=== PATIENT | male | born 1960 | race Caucasian/White ===

== ENCOUNTER 2025-08-22 09:39 | Outpatient (REF) | payer OTHER, SELFPAY ==
--- OUTSIDE RECORDS SUMMARY | 2025-07-24 11:00 | XMS_ITS | Encounter Summary ---
Author Organization [facility] Address [address] [place] [address] Care Team Providers Care Shingle Packer Name Role Phone Thony Coyne M.D. Primary Care Provide r Reason for Referral * Outpatient (Routine) - Authorized Specialty Diagnoses / Procedures Referred By Odessa sandra Referred To Contact Family Medicine Diagnoses Cardiac Arrest Sudden Personal History Avis Dyson APRN, C.N.PShellie, D.N.PShellie [address] [place] [address] Phone: tel: fax: Thony Coyne M.D. [address] [place] [address] Phone: tel: fax: Referral ID Status Reason Start Date Expiration Date V isits Requested Visits Authorized [id number] Authorized 07/24/2025 01/23/2027 1 1 * MRI/CAT/PET Scan (Routine) - Authorized Specialty Diagnoses / Procedures Referred By Odessa sandra Referred To Contact Radiology Diagnoses Nodules Pulmonary Multiple Procedures CT Chest without IV Contrast Avis Dyson APRN, C.N.P., D.N.P. [address] [place] [phone] Phone: tel: fax: [facility] Region Referral ID Status Reason Start Date Expiration Date V isits Requested Visits Authorized [id number] Authorized 07/24/2025 10/24/2026 1 1 Reason for Visit * Reason Comments Tcm - Post-Hospital Visit * Appointment Request (Routine) - Closed Specialty Diagnoses / Procedures Referred By Contac t Referred To Contact Family Medicine Referral ID Status Reason Start Date Expiration Date Visits Re quested Visits Authorized [id number] Closed 07/17/2025 10/17/2026 1 1 Encounter Details Date Type Department Care Team (Late st Contact Info) Description 07/24/2025 11:00 AM CDT Office Visit Department of Family Medicine, [facility], in [place], [place] [address] [phone] Avis Dyson APRN, C.N.P., D.N.P. [address], [place] [phone] Cardiac Arrest Sudden Personal History (Primary Dx); Nodules Pulmonary Multiple Social History Tobacco Use Types Packs/Day Years Used Date Smoking Tobacco: Never Passive Smoke Exposure: Past Smokeless Tobacco: Never Tobacco Cessation:Counseling Given: Not Answered Alcohol Use Standard Drinks/Week Comments Yes 2 (1 standard drink = 0.6 oz pure alcohol) 5-6 nights a week, has one drink [facility] Yoicsities Answer Date Recorded In the past 12 months has [employer], gas, oil, or water [employer] threatened to shut off services in your home? No 12/25/2024 Humiliation, Afraid, Rape, and Kick questionnair e Answer Date Recorded Within the last year, have y ou been afraid of your partner or ex-partner? No 11/11/2021 Within the last year, have y ou been humiliated or emotionally abused in other ways by your partner or ex-partner? No Within the last year, have y ou been kicked, hit, slapped, or otherwise physically hurt by your partner or ex-partner? No 11/11/2021 Within the last year, have y ou been raped or forced to have any kind of sexual activity by your partner or ex-partner? No 11/11/2021 Hunger Vital Sign Answer Date Recorded Within the past 12 months, y ou worried that your food would run out before you got the money to buy more. Never true 12/25/19 25 Within the past 12 months, t he food you bought just didn't last and you didn't have money to get more. Never true 12/25/2024 PRAPARE - Transportation Answer Date Re corded In the past 12 months, has l ack of transportation kept you from medical appointments or from getting medications? No 12/09 In the past 12 months, has l ack of transportation kept you from meetings, work, or from getting things needed for daily living? No 12/25/2024 Housing Stability Answer Date Recorded What is your living situation today? I have a [facility] place to live 12/25/2024 Education Answer Date Recorded What is the highest level of school you have completed or the highest degree you have received? Master's degree (e.g., MA, MS, Guilherme, MEd, CASKET UPHOLSTERER, ENDY) 05/04/2019 Sex and Gender Information Value Date Recorded Sex Assigned at Male 12/17/2017 8:02 PM LIME KILN AND RECAUSTICIZING OPERATOR Legal Sex Male 4:29 AM LIME KILN AND RECAUSTICIZING OPERATOR Gender Identity Male 12/17/2017 8:02 PM LIME KILN AND RECAUSTICIZING OPERATOR Sexual Orientation Straight 12/17/2017 8: 02 PM LIME KILN AND RECAUSTICIZING OPERATOR documented as of this encounter Last Filed Vital Signs Vital Sign Reading Time Taken Comments Blood Pressure 102/62 07/24/2025 10:57 AM CDT Pulse 65 07/24/2025 10:57 AM CDT Temperature - - Respiratory Rate - - Oxygen Saturation - - Inhaled Oxygen Concentration - - Weight 81.3 kg (179 lb 3.7 oz) 07/24/2025 10:57 AM CDT Height 182.8 cm (5' 11.97) 07/24/2025 10:57 AM CDT Body Mass Index 24.33 07/24/2025 10:57 AM CDT documented in this encounter Progress Notes * Avis Dyson, COOPER, C.N.P., D.N.P. - 07/24/2025 11:00 AM CDT DATE OF VISIT: 07/24/2025 SUBJECTIVE CHIEF COMPLAINT / REASON FOR VISIT Alex Sheffield is a 64 y.o. male who presents for evaluation of Tcm - Post- Hospital Visit. The patient verbally consented to an audio recording of their visit to assist with the completion of documentation. History of Present Illness . Alex Alvarez is a 64 year old male who presents to the clinic today with his for followup after hospitalization. Dates of Hospitalization: 06/30/2025 - 07/17/2025 [facility] Phone Call: 07/18/2025 Coronary artery bypass x4 (GANNON to LAD, GIRMA to OM, SVG to Dg, SVG to PDA) with Dr. Gould on 07/10/25. Per the hospital course, Alex Sheffield is a 64 y.o. male with h/o history of celiac disease, OSAnot on CPAP, h/o lumbar radiculopathy, who was admitted on 06/30/[address] [facility] ED after syncope and collapse, loss of pulse, requiring CPR. He is active at baseline, bikes 200 miles per week. Was on his morning bike ride with a group of cyclists and at around mile 9 developed dizziness and collapsed. Evaluation by another cyclist who happened to be an RN found no pulse and CPR started x 1 cycle with ROSC. Went to ED in [facility], head CT negative, CT PE unremarkable. Transferred to [facility] 06/30/25 for evaluation of cardiac arrest. TTE 06/30/25 showed normal EF 65% without wall motion abnormalities. CTCA 07/02/25 showed LAD 70% stenosis, severe disease in left second diag branch. Coronary angiogram 07/03/25 with multivessel disease. Preoperatively had an episode of nonsustained VT 07/02/25 so EP started short course of amiodarone on 07/03. Pt underwent coronary artery bypass x4 (GANNON to LAD, GIRMA to OM, SVG to Dg, SVG to PDA) with Dr. Gould on 07/10/25. Operative course was uneventful. Postop LVEF: 55%. Extubated later same day of surgery, and transferred to [facility] in stable condition 07/12. Post-op course notable for brief episode of a-fib 07/13, self-converted back to sinus and rate controlled with metoprolol. Per EP, dual chamber ICD placed 07/16 for secondary prevention given history of out of hospital cardiac arrest that was not felt to be ischemic in etiology. The patient has otherwise recovered sufficiently to be discharged today, 07/17/2025, 7 Days Post-Op. Incisions are healing well with no signs or symptoms of infection. Pain is well controlled with medication regimen listed below. Patient is tolerating PO intake and passing bowel movements. Ambulatingwell independently. Pt is currently afebrile with stable vital signs as below and weight is stable and near baseline. He has been experiencing lightheadedness and dizziness for the past four to five days, with a significant worsening of symptoms this morning. He feels dizzy, lightheaded, and almost foggy upon standing. His noted a concerning drop in his blood pressure to 77/63 mmHg when he stood up, which later returned to normal. He has been drinking plenty of fluids and feels well-hydrated. He started taking losartan 50 mg this morning after discontinuing lisinopril on the tenth due to a severe cough. The cough has since subsided, and he reports improvement in physical pain and rib soreness since stopping lisinopril. He is also on a high dose of metoprolol and has been using Tylenol for pain management, having stopped oxycodone. He mentions frequent urination at night, which he attributes to increased hydration. He has been prescribed Plavix for a year and aspirin for life. No other symptoms apart from the lightheadedness, dizziness, and improved physical pain. OBJECTIVE VITAL SIGNS BP 102/62 (BP Location: Right arm, Patient Position: Sitting, Cuff Size: Regular) Pulse 65 Ht 182.8 cm Wt 81.3 kg BMI 24.33 kg/m?? Physical Exam General: Well-developed, well-nourished 64 y.o. male in no acute distress. Patient is cooperative during our visit today. HEENT: Head is normocephalic. Conjunctivae and sclerae clear without injection. Pupils equal and reactive bilaterally. EOM's intact. Respiratory: Clear to auscultation bilaterally throughout all lung gayle. Respirations are easy and unlabored. Cardiovascular: Regular rate and rhythm. No murmurs, gallops or rubs heard. Musculoskeletal: Normal range of motion in all extremities. 5/5 strength in bilateral upper and lower extremities. Neuro: Alert and oriented x3, responds appropriately to questions and follows commands without difficulty. Extremities: No cyanosis, clubbing or edema. Skin: Warm, pink and dry. No rashes or lesions. Surgical scars on chest are well healed, no signs of bleeding or infection. Psych: Appropriate mood and affect. Dressed appropriately. Contributes to meaningful conversation. Speech was spontaneous, clear, coherent, with normal rate, rhythm, volume, and tone. ASSESSMENT/ PLAN Cardiac Arrest Sudden Personal History Overall doing well since discharge. He's having some hypotension likely due to losartan and metoprolol combination. He is well-hydrated. BP today in clinic is 102/62. Prescribed Plavix for one year and aspirin for life. Starting cardiac rehabilitation. - Continue Plavix for one year. - Continue aspirin indefinitely. - Start cardiac rehabilitation. - Attend follow-up appointment with cardiology team in mid-September. - Reduce losartan dose from 50 to 25 mg daily. - Monitor blood pressure at home and report trends via portal message and if this improves the dizziness. - Consider discontinuing losartan if symptoms persist after 2-3 days at reduced dose. - Labs recheck today include CBC and BMP. Orders: CBC without Differential; Future Basic Metabolic Panel; Future losartan (Cozaar) 25 mg tablet; Take 1 tablet (25 mg total) by mouth daily. Family Medicine office visit (clinic); Future Nodules Pulmonary Multiple Pulmonary nodules identified. Follow-up chest CT recommended in six months. - Order chest CT in six months to evaluate pulmonary nodules. Orders: CT Chest without IV Contrast; Future Follow-up Requires follow-up for blood pressure management and post-myocardial infarction care. - Schedule follow-up with Dr. Thony Coyen in 3-4 months. - Coordinate CT for pulmonary nodules. - Perform lab tests today to check platelet count, hemoglobin, electrolytes, and kidney function. - Will notify us how BPs trend over the next few days and symptoms. The patient verbalized understanding and agreement of the plan of care. All questions were answeredtoday. The patient will contact the clinic with any questions, concerns or changes in condition. Aware of emergency department if they develop any worrisome symptoms or have any immediate medical concerns. AVS was provided to the patient. Avis Dyson APRN, C.N.P., D.N.P. documented in this encounter Plan of Treatment Scheduled Orders Name Type Priority Associated Diagnoses Orde r Schedule CT Chest without IV Contrast Imaging RAD - Routine (most inpatients and all outpatients) Nodules Pulmonary Multiple Expected: 01/21/2026, Expires: 10/23/2026 Scheduled Referrals Name Type Priority Associated Diagnoses Orde r Schedule Family Medicine office visit (clinic) Outpatient Referral Routine Cardiac Arrest Sudden Personal History Expected: 10/23/2025, Expires: 10/23/2026 documented as of this encounter Results * Basic Metabolic Panel (07/24/2025 11:32 AM CDT) Potassium, P 4.5 3.6 - 5.2 mmol/L 07/24/2025 12:05 PM CDT [facility] Sodium, P 138 135 - 145 mmol/L 07/24/2025 12:05 PM CDT [facility] Chloride, P 101 98 - 107 mmol/L 07/24/2025 12:05 PM CDT [facility] Bicarbonate, P 25 22 - 29 mmol/L 07/24/2025 12:05 PM CDT [facility] Anion Gap, P 12 7 - 15 07/24/2025 12:05 PM CDT [facility] BUN (Blood Urea Nitrogen), P 16 8 - 24 mg/dL 07/24/2025 12:05 PM CDT [facility] Creatinine 0.97 0.74 - 1.35 mg/dL 07/24/2025 12:05 PM CDT [facility] Estimated GFR (eGFR) 88 >=60 mL/min/BSA 07/24/2025 12:05 PM CDT [facility] Comment: Estimated GFR calculated using the 2020 CKD_EPI creatinine equation. Calcium, Total, P 9.5 8.8 - 10.2 mg/dL 07/24/2025 12:05 PM CDT [facility] Glucose, P 99 70 - 140 mg/dL 07/24/2025 12:05 PM CDT [facility] Blood (Blood, Venous) 07/24/2025 11:32 AM CDT 07/24/2025 11:40 AM CDT us Avis Dyson APRN C.N.P., D.N.P. LAB BLOO D ADD-ON Final Result Performing Organization Address [facility]/ZIP Co de Phone Number [facility] [address] [place] [address], [facility] [facility] [place] [address] [place] [address] * (ABNORMAL) CBC without Differential (07/24/2025 11:32 AM CDT) [facility] Hemoglobin 11.3(L) 13.2 - 16.6 g/dL 07/24/2025 11:46 AM CDT [facility] Hematocrit 36.0(L) 38.3 - 48.6 % 07/24/2025 11:46 AM CDT [facility] Erythrocytes 4.07(L) 4.35 - 5.65 x10(12)/L 07/24/2025 11:46 AM CDT [facility] MCV 88.5 78.2 - 97.9 fL 07/24/2025 11:46 AM CDT [facility] RBC Distrib Width 13.3 11.8 - 14.5 % 07/24/2025 11:46 AM CDT [facility] Platelet Count 426(H) 135 - 317 x10(9)/L 07/24/2025 11:46 AM CDT [facility] Leukocytes 8.8 3.4 - 9.6 x10(9)/L 07/24/2025 11:46 AM CDT [facility] Blood (Blood, Venous) 07/24/2025 11:32 AM CDT 07/24/2025 11:40 AM CDT us Avis Dyson APRN C.N.P., D.N.P. LAB BLOO D ADD-ON Final Result Performing Organization Address City/[facility]/ZIP Co de Phone Number [facility] [address] [place] [address], [facility] [facility] [place] [address] [place] [address] documented in this encounter Visit Diagnoses Diagnosis Cardiac Arrest Sudden Personal History- Primary Nodules Pulmonary Multiple documented in this encounter Care Teams Shingle Packer Relationship Specialty Start Date End Date Thony Coyne M.D. [address] [place] [phone] PCP - General 04/22/17 documented as of this encounter
--- OUTSIDE RECORDS SUMMARY | 2025-07-24 11:26 | XMS_ITS | Encounter Summary ---
Author Organization [facility] Address [address] [place] [address] Care Team Providers Care Hydraulic Press Tender Name Role Phone Thony Coyne M.D. Primary Care Provide r Encounter Details Date Type Department Care Team (Latest Contact Info) Description 07/24/2025 11:26 AM CDT - 07/24/2025 11:59 PM T Hospital Encounter Department of Laboratory Medicine in [place], [place] [address] [phone] Avis Dyson APRN, C.N.P., D.N.P. [address] [phone] Cardiac Arrest Sudden Personal History Discharge Disposition: Home or Self Care Social History Tobacco Use Types Packs/Day Years Used Date Smoking Tobacco: Never Passive Smoke Exposure: Past Smokeless Tobacco: Never Alcohol Use Standard Drinks/Week Comments Yes 2 (1 standard drink = 0.6 oz pure alcohol) 5-6 nights a week, has one drink [facility] Utilities Answer Date Recorded In the past 12 months has [employer], gas, oil, or water [employer] threatened to shut off services in your [...] your living situation today? I have a [facility] place to live 12/25/2024 Education Answer Date Recorded What is the highest level of school you have completed or the highest degree you have received? Master's degree (e.g., MA, MS, Guilherme, MEd, CORPORATE STRATEGY ANALYST, ENDY) 05/04/2019 Sex and Gender Information Value Date Recorded Sex Assigned at Male 12/17/2017 8:02 PM MACHINE PECAN GATHERER Legal Sex Male 4:29 AM MACHINE PECAN GATHERER Gender Identity Male 12/17/2017 8:02 PM MACHINE PECAN GATHERER Sexual Orientation Straight 12/17/2017 8: 02 PM MACHINE PECAN GATHERER documented as of this encounter Medications at Time of Discharge acetaminophen (TylenoL) 500 mg tablet Take 1,000 mg by mouth every 6 (six) hours as needed. 07/16/2025 aspirin 81 mg chewable tablet Chew 81 mg daily. 07/17/2025 azelastine (ASTELIN) 137 mcg/spray (0.1 %) nasal spray Administer into each nostril 2 (two) times a day. Use in each nostril as directed benzonatate (Tessalon) 200 mg capsule Take 200 mg by mouth 3 (three) times a day as needed. 07/16/2025 cetirizine (ZyrTEC) 10 mg chewable tablet Chew 10 mg daily. clopidogreL (Plavix) 75 mg tablet Take 75 mg by mouth daily. 07/17/2025 fluticasone propionate (FLONASE) 50 mcg/actuation nasal spray USE 2 SPRAYS IN EACH NOSTRIL DAILY 48 g 3 02/05/2023 meloxicam (MOBIC) 7.5 mg tablet Take 7.5 mg by mouth daily. metoprolol succinate (Toprol XL) 100 mg 24 hr tablet Take 100 mg by mouth daily. 07/17/2025 montelukast (SINGULAIR) 10 mg tabletIndication s:Chronic Cough Take 1 tablet (10 mg total) by mouth at bedtime. 90 tablet 3 08/11/2021 multivitamin tablet Take 1 tablet by mouth daily. nitroglycerin (Nitrostat) 0.[address] 0.4 mg under the tongue every 5 (five) minutes as needed. 07/16/2025 omeprazole (PriLOSEC) [address] capsule Take 20 mg by mouth daily before morning meal. oxyCODONE (Roxicodone) 5 mg immediate release tablet Take 5-10 mg by mouth every 6 (six) hours as needed. 07/16/2025 rosuvastatin (Crestor) 20 mg tablet Take 20 mg by mouth at bedtime. 07/16/2025 losartan (Cozaar) 25 mg tabletIndication s:Cardiac Arrest Sudden Personal History Take 1 tablet (25 mg total) by mouth daily. 30 tablet 07/24/2025 documented as of this encounter Plan of Treatment Not on file documented as of this encounter Procedures Procedure Name Priority Date/Time Associated Diagnosis Comments CBC WITHOUT DIFFERENTIAL, B Routine 07/24/2025 11:32 AM CDT Cardiac Arrest Sudden Personal History BASIC METABOLIC PANEL, S/P Routine 07/24/2025 11:32 AM CDT Cardiac Arrest Sudden Personal History documented in this encounter Results * Basic Metabolic Panel (07/24/2025 11:32 AM CDT) [facility] Potassium, P 4.5 3.6 - 5.2 mmol/L [...] 11:32 AM CDT 07/24/2025 11:40 AM CDT Avis Dyson APRN, C.N.P., D.N.P. LAB BLOO D ADD-ON Final Result [facility] [address] [place] [address], [facility] [place] [address] [place] [address] * (ABNORMAL) CBC without Differential (07/24/2025 11:32 AM CDT) Hemoglobin 11.3(L) 13.2 - 16.6 g/dL 07/24/2025 [...] 11:32 AM CDT 07/24/2025 11:40 AM CDT [facility] Kiel GAMBOA, C.N.P., D.N.P. LAB BLOO D ADD-ON Final Result [facility] [address], [place] [address], [facility] [place] [address] [place] [address] documented in this encounter Visit Diagnoses Diagnosis Cardiac Arrest Sudden Personal History documented in this encounter Care Teams Hydraulic Press Tender Relationship Specialty Start Date End Date Thony Coyne M.D. [address] [place] [phone] PCP - General 04/22/17 documented as of this encounter
--- OUTSIDE RECORDS SUMMARY | 2025-07-25 16:33 | XMS_ITS | Encounter Summary ---
Author Organization [facility] Address [address] [place] [address] Care Team Providers Care Bag Patcher Name Role Phone Thony Coyne M.D. Primary Care Provide r Reason for Visit * Reason Comments Hypertension * Auth/Cert (Routine) Specialty Diagnoses / Procedures Referred By Contac t Referred To Contact Diagnoses Hypertension NOS Procedures ED Referral ID Status Reason Start Date Expiration Date Visits Re quested Visits Authorized [id number] 1 1 Encounter Details Date Type Department Care Team (Late st Contact Info) Description 07/25/2025 4:33 PM CDT - 07/25/2025 11:59 PM CDT Emergency [facility] [address] [facility] [place] [address] Discharge Disposition: Home or Self Care Social History Tobacco Use Types Packs/Day Years Used Date Smoking Tobacco: Never Passive Smoke Exposure: Past Smokeless Tobacco: Never Alcohol Use Standard Drinks/Week Comments Yes 2 (1 standard drink = 0.6 oz pure alcohol) 5-6 nights a week, has one drink [facility] Utilities Answer Date Recorded In the past 12 months has [employer], gas, oil, or water [employer] threatened to shut off services in your [...] your living situation today? I have a [facility] place to live 12/25/2024 Education Answer Date Recorded What is the highest level of school you have completed or the highest degree you have received? Master's degree (e.g., MA, MS, Guilherme, MEd, ASSISTANT PLANT MANAGER, ENDY) 05/04/2019 Sex and Gender Information Value Date Recorded Sex Assigned at Male 12/17/2017 8:02 PM PEER EDUCATOR Legal Sex Male 4:29 AM PEER EDUCATOR Gender Identity Male 12/17/2017 8:02 PM PEER EDUCATOR Sexual Orientation Straight 12/17/2017 8: 02 PM PEER EDUCATOR documented as of this encounter Medications at [...] total) by mouth daily. 30 tablet 07/24/2025 5 documented as of this encounter Plan of Treatment Not on file documented as of this encounter Visit Diagnoses Not on filedocumented in this encounter Care Teams Bag Patcher Relationship Specialty Start Date End Date Thony Coyne M.D. [address] [place] [address] PCP - General 04/22/17 documented as of this encounter
--- OUTSIDE RECORDS SUMMARY | 2025-07-29 10:12 | XMS_ITS | Encounter Summary ---
Author Organization [facility] Address [address] [place] [address] Care Team Providers Care Pacu Rn Name Role Phone Thony Coyne M.D. Primary Care Provide r Reason for Visit * Reason Comments Dizziness * Auth/Cert (Routine) Specialty Diagnoses / Procedures Referred By Contac t Referred To Contact Diagnoses Hypertension NOS Procedures ED Referral ID Status Reason Start Date Expiration Date Visits Re quested Visits Authorized [id number] 1 1 Encounter Details Date Type Department Care Team (Late st Contact Info) Description 07/29/2025 10:12 AM CDT - 07/29/2025 11:59 PM CDT Emergency [facility] [address] [facility] [place] [address] Dizziness (Primary Dx) Discharge Disposition: Home or Self Care Social History Tobacco Use Types Packs/Day Years Used Date Smoking Tobacco: Never Passive Smoke Exposure: Past Smokeless Tobacco: Never Alcohol Use Standard Drinks/Week Comments Yes 2 (1 standard drink = 0.6 oz pure alcohol) 5-6 nights a week, has one drink [facility] Utilities Answer Date Recorded In the past 12 months has [employer], gas, oil, or water [id number] threatened to shut off services in your [...] your living situation today? I have a [facility] place to live 12/25/2024 Education Answer Date Recorded What is the highest level of school you have completed or the highest degree you have received? Master's degree (e.g., MA, MS, Guilherme, MEd, MEDICAL OFFICE REPRESENTATIVE, ENDY) 05/04/2019 Sex and Gender Information Value Date Recorded Sex Assigned at Male 12/17/2017 8:02 PM GLASS BREAKER Legal Sex Male 4:29 AM GLASS BREAKER Gender Identity Male 12/17/2017 8:02 PM GLASS BREAKER Sexual Orientation Straight 12/17/2017 8: 02 PM GLASS BREAKER documented as of this encounter Medications at [...] Procedure Name Priority Date/Time Associated Diagnosis Comments CT ABDOMEN PELVIS WITH IV CONTRAST RAD - Semiurgent (Fast; most ED patients; some inpatients) 07/29/2025 12:[address] CHEST ANGIOGRAM AND PULMONARY ARTERIES WITH IV CONTRAST RAD - Semiurgent (Fast; most ED patients; some inpatients) 07/29/2025 12:55 PM CDT documented in this encounter Results * CT Abdomen Pelvis with IV Contrast (07/29/2025 12:56 PM CDT) Anatomical Region Laterality Modality Abdomen, Pelvis, Abdominal R ST LOS, Abdominal ARZ LOS, Abdominal FLA LOS N/A Computed Tomography Impressions 07/29/2025 1:25 PM CDT 1. No pulmonary embolus. 2. Left greater than right pleural effusions. 3. Right adrenal hypoattenuating lesion is suspicious for old hematoma given more solid appearance on prior CT on 06/30/2025 and has decreased in size since then. Consider follow-up adrenal protocol CT in 3-6 months. Narrative 07/29/2025 1:25 PM CDT EXAM: CT CHEST ANGIOGRAM AND PULMONARY ARTERIES WITH IV CONTRAST, CT ABDOMEN PELVIS WITH IV CONTRAST Including 3D image postprocessing with or without AI assistance. COMPARISON: CTA 06/30/2025 FINDINGS: Chest: Pulmonary Arteries: Excellent quality study. Pulmonary embolism: No endoluminal filling defects in the opacified pulmonary arteries. Other cardiovascular: Heart size is borderline enlarged. No pericardial effusion. Reflux of contrast into the IVC Lungs and Airways: No focal airspace consolidation. Bibasilar atelectasis overlying the pleural effusions. 5 mm solid nodule in the left lower lobe on series 6 image 338 is stable as well as subpleural nodule along the right horizontal fissure. Right-sided calcified granulomas. Pleural Space: Small left greater than right pleural effusions. Mediastinum and Benita: No thoracic adenopathy. Osseous Structures and Chest Wall: No aggressive bone lesions. Chronic anterior wedging of midthoracic vertebral bodies with slight focal kyphosis. Medical Devices: Median sternotomy and ICD. Abdomen: Liver: Subcentimeter hypodensity in segment 7, most likely cyst or hemangioma. No suspicious lesion. Gallbladder/bile ducts: No gallstones or billiary dilation Pancreas: No focal lesion or ductal dilation Spleen: Within normal limits Adrenal glands: 3 cm right adrenal fluid collection. More solid on 06/30/2025 and measured up to 3.9 cm. Kidneys/Ureters:No suspicious mass, hydronephrosis or calculi. Tiny hypodensities too small to characterize, but most likely simple cysts Gastrointestinal tract: No wall thickening. Normal caliber large and small bowel. Appendectomy Moderate colonic stool. Peritoneum/Retroperitoneum: No free air or free fluid. No suspicious nodule or mass. Lymph nodes: No lymphadenopathy. Vascular: Normal caliber aorta. Atherosclerosis Pelvis: No free fluid. Normal urinary bladder. Bones/Soft Tissues: No acute or suspicious soft tissue or osseous abnormality. Degenerative changes in the spine. Procedure Note Beltran Viveros M.D. - 07/29/2025 EXAM: CT CHEST ANGIOGRAM AND PULMONARY ARTERIES WITH IV CONTRAST, CTABDOMEN PELVIS WITH IV CONTRAST Including 3D image postprocessing with or without AI assistance. COMPARISON: CTA 06/30/2025 FINDINGS: Chest: Pulmonary Arteries: Excellent quality study. Pulmonary embolism: No endoluminal filling defects in the opacifiedpulmonary arteries. Other cardiovascular: Heart size is borderline enlarged. No pericardialeffusion. Reflux of contrast into the IVC Lungs and Airways: No focal airspace consolidation. Bibasilar atelectasisoverlying the pleural effusions. 5 mm solid nodule in the left lower lobeon series 6 image 338 is stable as well as subpleural nodule along theright horizontal fissure. Right- sided calcified granulomas. Pleural Space: Small left greater than right pleural effusions. Mediastinum and Benita: No thoracic adenopathy. Osseous Structures and Chest Wall: No aggressive bone lesions. Chronicanterior wedging of midthoracic vertebral bodies with slight focalkyphosis. Medical Devices: Median sternotomy and ICD. Abdomen: Liver: Subcentimeter hypodensity in segment 7, most likely cyst orhemangioma. No suspicious lesion. Gallbladder/bile ducts: No gallstones or billiary dilation Pancreas: No focal lesion or ductal dilation Spleen: Within normal limits Adrenal glands: 3 cm right adrenal fluid collection. More solid on06/30/2025 and measured up to 3.9 cm. Kidneys/Ureters:No suspicious mass, hydronephrosis or calculi. Tinyhypodensities too small to characterize, but most likely simple cysts Gastrointestinal tract: No wall thickening. Normal caliber large and smallbowel. Appendectomy Moderate colonic stool. Peritoneum/Retroperitoneum: No free air or free fluid. No suspiciousnodule or mass. Lymph nodes: No lymphadenopathy. Vascular: Normal caliber aorta. Atherosclerosis Pelvis: No free fluid. Normal urinary bladder. Bones/Soft Tissues: No acute or suspicious soft tissue or osseousabnormality. Degenerative changes in the spine. IMPRESSION: 1. No pulmonary embolus. 2. Left greater than right pleural effusions. 3. Right adrenal hypoattenuating lesion is suspicious for old hematomagiven more solid appearance on prior CT on 06/30/2025 and has decreased insize since then. Consider follow-up adrenal protocol CT in 3-[address] CT PROCEDURES Final Resul t * CT Chest Angiogram and Pulmonary Arteries with IV Contrast (07/29/2025 12:55 PM CDT) Anatomical Region Laterality Modality Chest, Cardiovascular RST LO S, Thoracic ARZ LOS, Thoracic FLA LOS N/A Computed Tomography Impressions 07/29/2025 1:25 PM CDT 1. No pulmonary embolus. 2. Left greater than right pleural effusions. 3. Right adrenal hypoattenuating lesion is suspicious for old hematoma given more solid appearance on prior CT on 06/30/2025 and has decreased in size since then. Consider follow-up adrenal protocol CT in 3-6 months. Narrative 07/29/2025 1:25 PM CDT EXAM: CT CHEST ANGIOGRAM AND PULMONARY ARTERIES WITH IV CONTRAST, CT ABDOMEN PELVIS WITH IV CONTRAST Including 3D image postprocessing with or without AI assistance. COMPARISON: CTA 06/30/2025 FINDINGS: Chest: Pulmonary Arteries: Excellent quality study. Pulmonary embolism: No endoluminal filling defects in the opacified pulmonary arteries. Other cardiovascular: Heart size is borderline enlarged. No pericardial effusion. Reflux of contrast into the IVC Lungs and Airways: No focal airspace consolidation. Bibasilar atelectasis overlying the pleural effusions. 5 mm solid nodule in the left lower lobe on series 6 image 338 is stable as well as subpleural nodule along the right horizontal fissure. Right-sided calcified granulomas. Pleural Space: Small left greater than right pleural effusions. Mediastinum and Benita: No thoracic adenopathy. Osseous Structures and Chest Wall: No aggressive bone lesions. Chronic anterior wedging of midthoracic vertebral bodies with slight focal kyphosis. Medical Devices: Median sternotomy and ICD. Abdomen: Liver: Subcentimeter hypodensity in segment 7, most likely cyst or hemangioma. No suspicious lesion. Gallbladder/bile ducts: No gallstones or billiary dilation Pancreas: No focal lesion or ductal dilation Spleen: Within normal limits Adrenal glands: 3 cm right adrenal fluid collection. More solid on 06/30/2025 and measured up to 3.9 cm. Kidneys/Ureters:No suspicious mass, hydronephrosis or calculi. Tiny hypodensities too small to characterize, but most likely simple cysts Gastrointestinal tract: No wall thickening. Normal caliber large and small bowel. Appendectomy Moderate colonic stool. Peritoneum/Retroperitoneum: No free air or free fluid. No suspicious nodule or mass. Lymph nodes: No lymphadenopathy. Vascular: Normal caliber aorta. Atherosclerosis Pelvis: No free fluid. Normal urinary bladder. Bones/Soft Tissues: No acute or suspicious soft tissue or osseous abnormality. Degenerative changes in the spine. Procedure Note Beltran Viveros M.D. - 07/29/2025 EXAM: CT CHEST ANGIOGRAM AND PULMONARY ARTERIES WITH IV CONTRAST, CTABDOMEN PELVIS WITH IV CONTRAST Including 3D image postprocessing with or without AI assistance. COMPARISON: CTA 06/30/2025 FINDINGS: Chest: Pulmonary Arteries: Excellent quality study. Pulmonary embolism: No endoluminal filling defects in the opacifiedpulmonary arteries. Other cardiovascular: Heart size is borderline enlarged. No pericardialeffusion. Reflux of contrast into the IVC Lungs and Airways: No focal airspace consolidation. Bibasilar atelectasisoverlying the pleural effusions. 5 mm solid nodule in the left lower lobeon series 6 image 338 is stable as well as subpleural nodule along theright horizontal fissure. Right- sided calcified granulomas. Pleural Space: Small left greater than right pleural effusions. Mediastinum and Benita: No thoracic adenopathy. Osseous Structures and Chest Wall: No aggressive bone lesions. Chronicanterior wedging of midthoracic vertebral bodies with slight focalkyphosis. Medical Devices: Median sternotomy and ICD. Abdomen: Liver: Subcentimeter hypodensity in segment 7, most likely cyst orhemangioma. No suspicious lesion. Gallbladder/bile ducts: No gallstones or billiary dilation Pancreas: No focal lesion or ductal dilation Spleen: Within normal limits Adrenal glands: 3 cm right adrenal fluid collection. More solid on06/30/2025 and measured up to 3.9 cm. Kidneys/Ureters:No suspicious mass, hydronephrosis or calculi. Tinyhypodensities too small to characterize, but most likely simple cysts Gastrointestinal tract: No wall thickening. Normal caliber large and smallbowel. Appendectomy Moderate colonic stool. Peritoneum/Retroperitoneum: No free air or free fluid. No suspiciousnodule or mass. Lymph nodes: No lymphadenopathy. Vascular: Normal caliber aorta. Atherosclerosis Pelvis: No free fluid. Normal urinary bladder. Bones/Soft Tissues: No acute or suspicious soft tissue or osseousabnormality. Degenerative changes in the spine. IMPRESSION: 1. No pulmonary embolus. 2. Left greater than right pleural effusions. 3. Right adrenal hypoattenuating lesion is suspicious for old hematomagiven more solid appearance on prior CT on 06/30/2025 and has decreased insize since then. Consider follow-up adrenal protocol CT in 3-6 months. Abby Duong M.D. IM CT PROCEDURES Final Resul t documented in this encounter Visit Diagnoses Diagnosis Dizziness- Primary documented in this encounter Administered Medications Inactive Administered Medications - up to 3 most recent administrations Medication Order MAR Action Action Date Dose Rate Site iohexoL 350 mg iodine/mL solution 100 mL (Omnipaque) 100 mL, intravenous, Once in imaging, contrast, Starting on 07/29/25 at 1250, For 1 dose Given 07/29/2025 11:47 AM CDT 100 mL Right Antecubital sodium chloride 0.9 % flush 80 mL 80 mL, intravenous, Once, On 07/29/25 at 1300, For 1 dose Given 07/29/2025 11:47 AM CDT 80 mL Right Antecubital sodium chloride 0.9 % injection 10 mL 10 mL, intravenous, As needed, line care, Starting on 07/29/25 at 1250 Given 07/29/2025 11:47 AM CDT 10 mL Right Antecubital documented in this encounter Active and Recently Administered Medications Times are shown in CDT. Scheduled Medication Order 07/27/2025 07/28/2025 07/29/2025 sodium chloride 0.9 % flush 80 mL (COMPLETED) 80 mL, intravenous, Once, On 07/29/25 at 1300, For 1 dose 1147 (Given - Provid er: Ruby A Evelio, R.T.(R)(CT), R.T.(R)) PRN Medication Order 07/27/2025 07/28/2025 07/29/2025 iohexoL 350 mg iodine/mL solution 100 mL (Omnipaque) (COMPLETED) 100 mL, intravenous, Once in imaging, contrast, Starting on 07/29/25 at 1250, For 1 dose 1147 (Given - Provid er: Kevan Liu(Alex)(CT), R.T.(R)) sodium chloride 0.9 % injection 10 mL (CANCELED) 10 mL, intravenous, As needed, line care, Starting on 07/29/25 at 1250 1147 (Given - Provid er: Kevan Liu(Alex)(CT), R.T.(R)) documented in this encounter Care Teams Pacu Rn Relationship Specialty Start Date End Date Thony Coyne M.D. [address] [phone] PCP - General 04/22/17 documented as of this encounter
--- OUTSIDE RECORDS SUMMARY | 2025-08-23 00:14 | XMS_ITS | Encounter Summary ---
Author Organization [facility] Address [address] [place] [address] Care Team Providers Care Crime Lab Technician Name Role Phone Thony Coyne M.D. Primary Care Provide r Encounter Details Date Type Department Care Team (Late st Contact Info) Description 08/09/2025 Orders Only Department of Family Medicine, [facility] [place], in [place], [place] [address] [place] [phone] Thony Coyne M.D. [address] [place] [address] Social History Tobacco Use Types Packs/Day Years Used Date Smoking Tobacco: Never Passive Smoke Exposure: Past Smokeless Tobacco: Never Alcohol Use Standard Drinks/Week Comments Yes 2 (1 standard drink = 0.6 oz pure alcohol) 5-6 nights a week, has one drink [employer] Answer Date Recorded In the past 12 months has [employer] gas, oil, or water [employer] threatened to shut off services in your [...] your living situation today? [facility] 12/25/2024 Education Answer Date Recorded What is the highest level of school you have completed or the highest degree you have received? Master's degree (e.g., MA, MS, Guilherme, MEd, SHEET WRITER, ENDY) 05/04/2019 Sex and Gender Information Value Date Recorded Sex Assigned at Male 12/17/2017 8:02 PM CARGO SERVICE AGENT Legal Sex Male 4:29 AM CARGO SERVICE AGENT Gender Identity Male 12/17/2017 8:02 PM CARGO SERVICE AGENT Sexual Orientation Straight 12/17/2017 8: 02 PM CARGO SERVICE AGENT documented as of this encounter Plan of Treatment Not on file documented as of this encounter Visit Diagnoses Not on filedocumented in this encounter Care Teams Crime Lab Technician Relationship Specialty Start Date End Date Thony Coyne M.D. [address] [place] [address] PCP - General 04/22/17 documented as of this encounter
--- OUTSIDE RECORDS SUMMARY | 2025-08-23 00:15 | XMS_ITS | Encounter Summary ---
Author Organization [facility] Address [address] [place] [address] Care Team Providers Care Commercial Real Estate Appraiser Name Role Phone Thony Coyne M.D. Primary Care Provide r Reason for Visit * Reason Onset Date Comments Med Question 07/24/2025 Encounter Details Date Type Department Care Team (Late st Contact Info) Description 07/24/2025 Clinical Communication Department of Family Medicine, [facility], in [place], [place] [address] [phone] Thony Coyne M.D. [address] [phone] Med Question Social History Tobacco Use Types Packs/Day Years Used Date Smoking Tobacco: Never Passive Smoke Exposure: Past Smokeless Tobacco: Never Alcohol Use Standard Drinks/Week Comments Yes 2 (1 standard drink = 0.6 oz pure alcohol) 5-6 nights a week, has one drink [facility] Utilities Answer Date Recorded In the past 12 months has [employer], gas, oil, or water [employer] threatened to shut off services in your [...] your living situation today? I have a [facility] place to live 12/25/2024 Education Answer Date Recorded What is the highest level of school you have completed or the highest degree you have received? Master's degree (e.g., MA, MS, Guilherme, MEd, QA SOFTWARE TEST ENGINEER, ENDY) 05/04/2019 Sex and Gender Information Value Date Recorded Sex Assigned at Male 12/17/2017 8:02 PM 3D ANIMATOR Legal Sex Male 4:29 AM 3D ANIMATOR Gender Identity Male 12/17/2017 8:02 PM 3D ANIMATOR Sexual Orientation Straight 12/17/2017 8: 02 PM 3D ANIMATOR documented as of this encounter Miscellaneous Notes * Telephone Encounter - Haylie Garcia LShelliePShellieN. - 07/25/2025 12:40 PM CDT Information Discussed OK to stop losartan - continue metoprolol. Monitor BP at home - let us know over next 3 days how heis feeling. PLAN Disposition/Recommendation: self-care is appropriate at this time, patient encouraged to call back with questions Information/Education: patient/caller able to teach back Caller agreeable to plan of care: yes The following references were used: nursing clinical judgement documented in this encounter Plan of Treatment Not on file documented as of this encounter Visit Diagnoses Not on filedocumented in this encounter Care Teams Commercial Real Estate Appraiser Relationship Specialty Start Date End Date Thony Coyne M.D. [address] [place] [phone] PCP - General 04/22/17 documented as of this encounter
--- OUTSIDE RECORDS SUMMARY | 2025-08-23 00:15 | XMS_ITS | Encounter Summary ---
Author Organization [facility] Address [address] [place] [address] Care Team Providers Care Hand Roller Engraver Name Role Phone Thony Coyne M.D. Primary Care Provide r Reason for Visit * Reason Onset Date Comments Communication 08/09/2025 Encounter Details Date Type Department Care Team (Late st Contact Info) Description 08/09/2025 Clinical Communication Department of Family Medicine, [facility], in [place], [place] [address] [phone] Thony Coyne M.D. [address] [phone] Communication Social History Tobacco Use Types Packs/Day Years Used Date Smoking Tobacco: Never Passive Smoke Exposure: Past Smokeless Tobacco: Never Alcohol Use Standard Drinks/Week Comments Yes 2 (1 standard drink = 0.6 oz pure alcohol) 5-6 nights a week, has one drink [facility] Utilities Answer Date Recorded In the past 12 months has [employer], gas, oil, or water [employer] threatened to shut off services in your home? No 12/25/2024 Humiliation, Afraid, Rape, and Kick questionnair e Answer Date Recorded Within the last year, have y ou been afraid of your partner or ex-partner? No 11/11/2021 Within the last year, have y ou been humiliated or emotionally abused in other ways by your partner or ex-partner? No 01 /02/2022 Within the last year, have y ou [...] your living situation today? I have a [facility] place to live 12/25/2024 Education Answer Date Recorded What is the highest level of school you have completed or the highest degree you have received? Master's degree (e.g., MA, MS, Guilherme, MEd, LINER INSTALLER, ENDY) 05/04/2019 Sex and Gender Information Value Date Recorded Sex Assigned at Male 12/17/2017 8:02 PM THROAT CUTTER Legal Sex Male 4:29 AM THROAT CUTTER Gender Identity Male 12/17/2017 8:02 PM THROAT CUTTER Sexual Orientation Straight 12/17/2017 8: 02 PM THROAT CUTTER documented as of this encounter Miscellaneous Notes * Telephone Encounter - Thony Coyne M.D. - 08/09/2025 1:17 PM CDT Can you please confirm that he would discontinue the losartan. With cardiology recently increasing the metoprolol, I would be hesitant to decrease what they increased. Has he reached out to the cardiology team and/or does he have a follow-up appointment scheduled with them? documented in this encounter Plan of Treatment Not on file documented as of this encounter Visit Diagnoses Not on filedocumented in this encounter Care Teams Hand Roller Engraver Relationship Specialty Start Date End Date Thony Coyne M.D. NPNeal: [phone] [address] [place] [phone] PCP - General 04/22/17 documented as of this encounter
--- OUTSIDE RECORDS SUMMARY | 2025-08-23 00:16 | XMS_ITS | Encounter Summary ---
Author Organization [facility] Address [address] [place] [address] Care Team Providers Care Furniture Crater Name Role Phone Thony Coyne M.D. Primary Care Provide r Reason for Visit * Reason Onset Date Comments Med Question 07/18/2025 Encounter Details Date Type Department Care Team (Late st Contact Info) Description 07/18/2025 Clinical Communication Department of Family Medicine, [facility], in [place], [place] [address] [phone] Thony Coyne M.D. [address] [phone] Med Question Social History Tobacco Use Types Packs/Day Years Used Date Smoking Tobacco: Never Passive Smoke Exposure: Past Smokeless Tobacco: Never Alcohol Use Standard Drinks/Week Comments Yes 2 (1 standard drink = 0.6 oz pure alcohol) 5-6 nights a week, has one drink [facility] Utilities Answer Date Recorded In the past 12 months has [employer], gas, oil, or water [employer] threatened to shut off services in your [...] your living situation today? I have a [facility] place to live 12/25/2024 Education Answer Date Recorded What is the highest level of school you have completed or the highest degree you have received? Master's degree (e.g., MA, MS, Guilherme, MEd, CAMPUS MONITOR, ENDY) 05/04/2019 Sex and Gender Information Value Date Recorded Sex Assigned at Male 12/17/2017 8:02 PM GAS APPLIANCE ADJUSTER Legal Sex Male 4:29 AM GAS APPLIANCE ADJUSTER Gender Identity Male 12/17/2017 8:02 PM GAS APPLIANCE ADJUSTER Sexual Orientation Straight 12/17/2017 8: 02 PM GAS APPLIANCE ADJUSTER documented as of this encounter Miscellaneous Notes * Telephone Encounter - Haylie Garcia L.PShellieN. - 07/18/2025 3:56 PM CDT Information Discussed OK to hold lisinopril at this time until I see him next week PLAN Disposition/Recommendation: recommended continue engagement in self-management activities Information/Education: patient/caller able to teach back Caller agreeable to plan of care: yes The following references were used: nursing clinical judgement documented in this encounter Plan of Treatment Not on file documented as of this encounter Visit Diagnoses Not on filedocumented in this encounter Care Teams Furniture Crater Relationship Specialty Start Date End Date Thony Coyne M.D. NPNeal: [phone] [address] [place] [phone] PCP - General 04/22/17 documented as of this encounter
--- OUTSIDE RECORDS SUMMARY | 2025-08-23 00:16 | XMS_ITS | Encounter Summary ---
Author Organization [facility] Address [address] [place] [address] Care Team Providers Care Propeller Mechanic Name Role Phone Thony Coyne M.D. Primary Care Provide r Reason for Visit * Reason Onset Date Comments Med Refill 07/23/2025 Encounter Details Date Type Department Care Team (Late st Contact Info) Description 07/23/2025 Refill Department of Family Medicine, [facility], in [place], [place] [address] [phone] Thony Coyne M.D. [address] [phone] Med Refill Social History Tobacco Use Types Packs/Day Years Used Date Smoking Tobacco: Never Passive Smoke Exposure: Past Smokeless Tobacco: Never Alcohol Use Standard Drinks/Week Comments Yes 2 (1 standard drink = 0.6 oz pure alcohol) 5-6 nights a week, has one drink [facility] Utilities Answer Date Recorded In the past 12 months has [employer], gas, oil, or water company threatened to shut off services in your [...] your living situation today? I have a [facility] place to live 12/25/2024 Education Answer Date Recorded What is the highest level of school you have completed or the highest degree you have received? Master's degree (e.g., MA, MS, Guilherme, MEd, LAUNDRY MACHINE OPERATOR, ENDY) 05/04/2019 Sex and Gender Information Value Date Recorded Sex Assigned at Male 12/17/2017 8:02 PM PERSONNEL ASSISTANT Legal Sex Male 4:29 AM PERSONNEL ASSISTANT Gender Identity Male 12/17/2017 8:02 PM PERSONNEL ASSISTANT Sexual Orientation Straight 12/17/2017 8: 02 PM PERSONNEL ASSISTANT documented as of this encounter Plan of Treatment Not on file documented as of this encounter Visit Diagnoses Not on filedocumented in this encounter Care Teams Propeller Mechanic Relationship Specialty Start Date End Date Thony Coyne M.D. [address] [place] [phone] PCP - General 04/22/17 documented as of this encounter
--- OUTSIDE RECORDS SUMMARY | 2025-08-23 00:16 | XMS_ITS | Clinical Summary ---
Author Organization [facility] Address [address] [place] [address] Care Team Providers Care Diagnostics Sales Developer Name Role Phone Thony Coyne M.D. Primary Care Provide r Source Comments Patient records contain information from all sites at [facility]. For routine questions regarding patient records, call [phone] during business hours, M-F 8:00 AM - 5:00 PM Central Time. Record requests for emergency care only can be directed to [phone] at any time.[facility] Allergies Active Allergy Reactions Criticality Noted Date Comments Lisinopril Cough High 07/24/2025 Sulfa (Sulfonamide Antibiotics) Other (see comments),GI intolerance 01/24/2007 Cerner lists no reaction Medications * This document contains information received from the source organization and may not represent a complete record from that organization. multivitamin tablet Take 1 tablet by mouth daily. Active montelukast (SINGULAIR) 10 mg tabletIndicati ons:Chronic Cough Take 1 tablet (10 mg total) by mouth at bedtime. 90 tablet 3 1 Active fluticasone propionate (FLONASE) 50 mcg/actuation nasal spray USE 2 SPRAYS IN EACH NOSTRIL DAILY 48 g 3 3 Active azelastine (ASTELIN) 137 mcg/spray (0.1 %) nasal spray Administer into each nostril 2 (two) times a day. Use in each nostril as directed Active meloxicam (MOBIC) 7.5 mg tablet Take 7.5 mg by mouth daily. Active cetirizine (ZyrTEC) 10 mg chewable tablet Chew 10 mg daily. Active omeprazole (PriLOSEC) [address] capsule Take 20 mg by mouth daily before morning meal. Active acetaminophen (TylenoL) 500 mg tablet Take 1,000 mg by mouth every 6 (six) hours as needed. 5 Active aspirin 81 mg chewable tablet Chew 81 mg daily. 5 Active benzonatate (Tessalon) 200 mg capsule Take 200 mg by mouth 3 (three) times a day as needed. 5 Active clopidogreL (Plavix) 75 mg tablet Take 75 mg by mouth daily. Active metoprolol succinate (Toprol XL) 100 mg 24 hr tablet Take 100 mg by mouth daily. Active nitroglycerin (Nitrostat) 0.[address] 0.4 mg under the tongue every 5 (five) minutes as needed. Active oxyCODONE (Roxicodone) 5 mg immediate release tablet Take 5-10 mg by mouth every 6 (six) hours as needed. 5 Active rosuvastatin (Crestor) 20 mg tablet Take 20 mg by mouth at bedtime. Active losartan (Cozaar) 25 mg tabletIndicati ons:Cardiac Arrest Sudden Personal History Take 1 tablet (25 mg total) by mouth daily. 30 tablet 5 08/09/20 25 Discontinu ed(Therapy completed) Active Problems Problem Noted Date Diagnosed Date Strain Of Muscle Fascia And Tendon Of Other Parts Of Biceps Left Arm Initial 02/21/2024 Rhinitis Allergic 02/15/2024 Obstructive Sleep Apnea Adult 10/12/2023 Assessment & Plan (10/30/2023 10:08 AM WOOD MOLDER): Patient continues to use CPAP. [facility] Sinusitis Chronic 10/12/2023 Assessment & Plan (10/30/2023 10:09 AM WOOD MOLDER): Patient appears to have maximized medical therapy. Given ongoing symptoms, will proceed with CT of the sinuses followed by ENT consult for their recommendations. Appreciate their assistance. Radiculopathy Lumbar 10/12/2023 Assessment & Plan (10/30/2023 10:09 AM WOOD MOLDER): I discussed additional options with the patient for him to review with his [facility] provider. Discussed gabapentin, pregabalin, and venlafaxine along with amitriptyline. Notify us if we can be of any further assistance. Chronic Cough 04/10/2019 Encounters * This document contains information received from the source organization and may not represent a complete record from that organization. Date Type Department Care Team Description 08/09/2025 Orders Only Department of Family Medicine, [facility], in [address] [phone] Thony Coyne M.D. 08/09/2025 Clinical Communication Department of Family [facility], [facility], in [address] [phone] Thony Coyne M.D. Communication 07/29/2025 10:12 AM CDT - 07/29/2025 11:59 PM CDT Emergency [facility] [address] [place] [phone] Dizziness (Primary Dx) Discharge Disposition: Home or Self Care 07/25/2025 4:33 PM CDT - 07/25/2025 11:59 PM CDT Emergency [facility] [address] [place] [phone] Discharge Disposition: Home or Self Care 07/24/2025 11:26 AM CDT - 07/24/2025 11:59 PM CDT Hospital Encounter Department of Laboratory Medicine in [place], [place] [address] [place] [phone] Avis Dyson APRN, C.N.P., D.N.P. Cardiac Arrest Sudden Personal History Discharge Disposition: Home or Self Care 07/24/2025 11:00 AM CDT Office Visit Department of Family [facility], [facility], in [address] [phone] Avis Dyson APRN, C.N.PShellie, D.N.P. Cardiac Arrest Sudden Personal History (Primary Dx); Nodules Pulmonary Multiple 07/24/2025 Clinical Communication Department of [facility] [place], [facility], in [place], [place] [address] [place] [phone] Thony Coyne M.D. Med Question 07/24/2025 Results Follow-Up Department of [facility] [place], [facility], in [place], [place] [address] [place] [phone] Avis Dyson APRN, C.N.PShellie, D.N.P. CBC without Differential, Basic Metabolic Panel 07/23/2025 Refill Department of [facility] [place], [facility], in [place], [place] [address] [place] [phone] Thony Coyne M.D. Med Refill 07/18/2025 Clinical Communication Department of [facility] [place], [facility], in [place], [place] [address] [place] [phone] Thony Coyne M.D. Med Question 07/18/2025 Nurse Triage Department of [facility], [place], [facility], in [place], [place] [address] [place] [phone] Sweetie Orourke R.N. Cough 07/18/2025 Clinical Communication Department of [facility], [place], [facility], in [place], [place] [address] [place] [phone] Priscilla Reddy R.N. Post Hospital Follow-up 07/04/2025 Documentation Division of Gastroenterology in [place], [place] [address] [place] [address] Sergio Jose M.D. 06/30/2025 8:37 AM CDT - 06/30/2025 11:59 PM CDT Emergency [facility] [address] [place] [phone] Illness (Primary Dx) Discharge Disposition: Home or Self Care 06/19/2025 Results Follow-Up Division of Gastroenterology in [place], [place] [address] [place] [phone] Anatoly Mccarthy M.D. tTG (Tissue Transglutaminase), Antibody, IgA 06/19/2025 Documentation Division of Gastroenterology in [place], [place] [address] [place] [phone] Nya Treviño 06/19/2025 Documentation Division of Gastroenterology in [place], [place] [address] [place] [phone] Anatoly Mccarthy M.D. from Last 3 Months Immunizations Immunization Administration Dates Next Due H1N1 Inj 11/19/2009 Influenza, Unspecified 08/08/2013 SARS-COV-2 (COVID-19) - MODE RNA (12 YEARS AND OLDER) Fall Seasonal 10/07/2023 SARS-COV-2 (COVID-19) - MODERNA(Discontinued) 03/31/2022,09/24/2021,03/14/2021,2020 Tdap 07/10/2011 influenza trivalent vaccine (6 months and older)(PF) 08/29/2024,11/19/2009 influenza vaccine quad (FLUZONE/FLUARIX) (6 months and older)(PF) 08/04/2023,09/10/2021,08/23/2020,2018 Family History Medical History Relation Name Comments No Known Problems Brother 1 No Known Problems Brother 2 Alcohol abuse Father Father Coronary artery disease Father Father Genetic disorder Father's Brother Sloan Sheffield AATD Liver disease Father's Brother Sloan Sheffield AATD Chronic lymphocytic leukemia Mother Hyperlipidemia (high cholesterol) Sister 1 Relation Name Status Comments Brother 1 Alive Brother 2 Alive Father Father (Age 64) CAD Father's Brother Sloan Sheffield Alive Mother Alive Sister 1 Alive Sister 2 Alive Social History Tobacco Use Types Packs/Day Years Used Date Smoking Tobacco: Never Passive Smoke Exposure: Past Smokeless Tobacco: Never Tobacco Cessation:Counseling Given: Not Answered Alcohol Use Standard Drinks/Week Comments Yes 2 (1 standard drink = 0.6 oz pure alcohol) 5-6 nights a week, has one drink [facility] Utilities Answer Date Recorded In the past 12 months has [employer], gas, oil, or water [employer] threatened to shut off services in your [...] your living situation today? I have a [facility] place to live 12/25/2024 Education Answer Date Recorded What is the highest level of school you have completed or the highest degree you have received? Master's degree (e.g., MA, MS, Guilherme, MEd, EMT B, ENDY) 05/04/2019 Sex and Gender Information Value Date Recorded Sex Assigned at Male 12/17/2017 8:02 PM WOOD MOLDER Legal Sex Male 4:29 AM WOOD MOLDER Gender Identity Male 12/17/2017 8:02 PM WOOD MOLDER Sexual Orientation Straight 12/17/2017 8: 02 PM WOOD MOLDER Last Filed Vital Signs Vital Sign Reading Time Taken Comments Blood Pressure 102/62 07/24/2025 10:57 AM CDT Pulse 65 07/24/2025 10:57 AM CDT Temperature 36.4 C (97.5 F) 06/19/2025 8:20 AM CDT Respiratory Rate 18 06/19/2025 10:58 AM CDT Oxygen Saturation 97% 06/19/2025 10:58 AM CDT Inhaled Oxygen Concentration - - Weight 81.3 kg (179 lb 3.7 oz) 07/24/2025 10:57 AM CDT Height 182.8 cm (5' 11.97) 07/24/2025 10:57 AM CDT Body Mass Index 24.33 07/24/2025 10:57 AM CDT Plan of Treatment Health Maintenance Due Date Last Done Comments CT Colonography 1962 FIT 1962 Pneumococcal vaccine (50+ years) (1 of 1 - PCV) 2012 Colonoscopy 08/18/2023 08/18/2013 COVID-19 Vaccine ( season) 2025 08/29/2024, 10/07/2023, 03/31/2022, Additional history exists Influenza Vaccine (#1) 2025 , 08/04/2023, 09/10/2021, Additional history exists HIV Screening 10/16/2025 Postponed from 1962 (Patient Refused) Cologuard 10/06/2026 10/06/2023 (Perf ormed elsewhere) Colorectal Cancer Screening 10/06/2026 Fasting Glucose for Diabetes Screening 07/29/2028 07/29/2025, 07/25/2025, 07/24/2025, Additional history exists Lipid (Cholesterol) Screening 06/30/2030 06/30/2025, 03/20/2025, 10/16/2024, Additional history exists DTaP,Tdap,and Td Vaccines (3 - Td or Tdap) 09/02/2031 09/02/2021, 07/10/2011 Hepatitis C Screening Completed 05/22/2019 Zoster Vaccines Completed 01/21/2022, 11/19/2021 Depression Screening (Annual PHQ-2) Completed 12/26/2024, 12/26/2024 IPV Vaccines Aged Out No longer eligi ble based on patient's age to complete this topic Procedures Procedure Name Priority Date/Time Associated Diagnosis Comments CT ABDOMEN PELVIS WITH IV CONTRAST RAD - Semiurgent (Fast; most ED patients; some inpatients) 07/29/2025 12:[address] CHEST ANGIOGRAM AND PULMONARY ARTERIES WITH IV CONTRAST RAD - Semiurgent (Fast; most ED patients; some inpatients) 07/29/2025 12:55 PM CDT BASIC METABOLIC PANEL, S/P Routine 07/24/2025 11:32 AM CDT Cardiac Arrest Sudden Personal History CBC WITHOUT DIFFERENTIAL, B Routine 07/24/2025 11:32 AM CDT Cardiac Arrest Sudden Personal History CT HEAD WITHOUT IV CONTRAST RAD - Semiurgent (Fast; most ED patients; some inpatients) 06/30/2025 10:[address] CHEST ANGIOGRAM AND PULMONARY ARTERIES WITH IV CONTRAST RAD - Semiurgent (Fast; most ED patients; some inpatients) 06/30/2025 10:42 AM CDT TISSUE TRANSGLUTAMINASE (TTG) AB, IGA, S Timed 06/19/2025 8:50 AM CDT CHOLESTEROL, TOTAL, S Timed 03/20/2025 8:34 AM CDT HCV AB SCRN W/REFLEX TO HCV PCR, S Routine 05/22/2019 10:54 AM CDT Screening Test Laboratory from Last 3 Months or Most Recently Relevant to Health Maintenance Results * CT Abdomen Pelvis with IV [...] with IV Contrast (07/29/2025 12:55 PM CDT) Only the most recent of2 resultswithin the time period is included. Anatomical Region Laterality Modality Chest, Cardiovascular RST [...] protocol CT in 3-6 months. us Abby Duong M.D. IMG CT PROCEDURES Final Resul t * (ABNORMAL) CBC without Differential (07/24/2025 11:32 [...] D.N.P. LAB BLOO D ADD-ON Final Result [facility] [address] [place] [place] [address], [place] [facility] in [place] [address] [place] [address] * Basic Metabolic Panel (07/24/2025 11:32 AM [...] D.N.P. LAB BLOO D ADD-ON Final Result [facility] [address] [place] [address], [facility] in [place] [address] [place] [address] * CT Head without IV Contrast (06/30/2025 10:49 AM CDT) Anatomical Region Laterality Modality Head, Neuroradiology RST LOS , Neuroradiology ARZ LOS, Neuroradiology FLA LOS N/A Computed Tomography 06/30/2025 10:2 1 AM CDT Impressions 06/30/2025 11:07 AM CDT No acute intracranial findings. Narrative 06/30/2025 11:07 AM CDT EXAM: CT HEAD WITHOUT IV CONTRAST COMPARISON: None FINDINGS: No acute intracranial hemorrhage. No abnormal intracranial mass or fluid collection. Mild multifocal cerebral white matter hypoattenuation, technically nonspecific though likely reflecting chronic microvascular ischemia and/or gliosis related to other prior remote insults. Ventricles and sulci are normal in size for patient's age. Visualized portions of the orbits, paranasal sinuses, calvarium and skull base are unremarkable. Procedure Note Sergio Bey M.D. - 06/30/2025 EXAM: CT HEAD WITHOUT IV CONTRAST COMPARISON: None FINDINGS: No acute intracranial hemorrhage. No abnormal intracranial massor fluid collection. Mild multifocal cerebral white matter hypoattenuation, technicallynonspecific though likely reflecting chronic microvascular ischemia and/orgliosis related to other prior remote insults. Ventricles and sulci are normal in size for patient's age. Visualized portions of the orbits, paranasal sinuses, calvarium and skullbase are unremarkable. IMPRESSION: No acute intracranial findings. Zeke Patricia M.D. IMG CT PROCEDURES Final R esult * tTG (Tissue Transglutaminase), Antibody, IgA (06/19/2025 8:50 AM CDT) Tissue Transglutaminase Ab, IgA, S 3.2 <4.0 (Negative ) U/mL 06/19/2025 4:06 PM CDT [facility] Blood 06/19/2025 8:50 AM CDT 06/19/2025 11:28 AM CDT us Anatoly Mccarthy M.D. LAB BLOOD ADD-ON Final Resu lt [facility] [address] [place] [address] [facility] [address] [place] [address] * HCV Ab Scrn w/Reflex to HCV PCR, Serum (05/22/2019 10:54 AM CDT) HCV Ab Screen, S Negative Negative 05/23/2019 10:09 AM CDT Comment:[id number]-[id number] rat io is <1.00. Blood (Blood, Venous) 05/22/2019 10:54 AM CDT 05/23/2019 6:53 AM CDT us Thony Coyne M.D. LAB MICROBIOLOGY - BL OOD ORDERABLES Final Result [facility] [address] [place] [address] from Last 3 Months or Most Recently Relevant to Health Maintenance Insurance [facility] Care Teams Diagnostics Sales Developer Relationship Specialty Start Date End Date Thony Coyne M.D. [address] [place] [phone] PCP - General 04/22/17
--- OUTSIDE RECORDS SUMMARY | 2025-08-23 00:16 | XMS_ITS | Encounter Summary ---
Author Organization [facility] Address [address] [place] [address] Care Team Providers Care Dinkey Engine Firer/Fireman Name Role Phone Thony Coyne M.D. Primary Care Provide r Encounter Details Date Type Department Care Team (Late st Contact Info) Description 07/24/2025 Results Follow-Up Department of Family Medicine, [facility], in [place], [place] [address] [phone] Avis Dyson APRN, C.N.P., D.N.P. [address] [phone] CBC without Differential, Basic Metabolic Panel Social History Tobacco Use Types Packs/Day Years Used Date Smoking Tobacco: Never Passive Smoke Exposure: Past Smokeless Tobacco: Never Alcohol Use Standard Drinks/Week Comments Yes 2 (1 standard drink = 0.6 oz pure alcohol) 5-6 nights a week, has one drink [facility] Utilities Answer Date Recorded In the past 12 months has [employer], gas, oil, or water [employer] threatened to shut off services in your [...] your living situation today? I have a [facility] place to live 12/25/2024 Education Answer Date Recorded What is the highest level of school you have completed or the highest degree you have received? Master's degree (e.g., MA, MS, Guilherme, MEd, BIOMEDICAL ENGINEERING TECHNOLOGIST, ENDY) 05/04/2019 Sex and Gender Information Value Date Recorded Sex Assigned at Male 12/17/2017 8:02 PM KENNEL AIDE Legal Sex Male 4:29 AM KENNEL AIDE Gender Identity Male 12/17/2017 8:02 PM KENNEL AIDE Sexual Orientation Straight 12/17/2017 8: 02 PM KENNEL AIDE documented as of this encounter Plan of Treatment Scheduled Orders Name Type Priority Associated Diagnoses Orde r Schedule CBC without Differential Lab Routine Cardiac Arrest Sudden Personal History Expected: 07/31/2025, Expires: 10/23/2026 documented as of this encounter Visit Diagnoses Diagnosis Cardiac Arrest Sudden Personal History- Primary documented in this encounter Care Teams Dinkey Engine Firer/Fireman Relationship Specialty Start Date End Date Thony Coyne M.D. [address] [place] [phone] PCP - General 04/22/17 documented as of this encounter
--- OUTSIDE RECORDS SUMMARY | 2025-08-23 00:17 | XMS_ITS | Clinical Summary ---
Author Organization [facility] Address [address] [place] [address] Care Team Providers Care Remote Control Mirror Installer Name Role Phone Thony Coyne MD Primary Care Prov ider Allergies Active Allergy Reactions Criticality Noted Date Comments Gluten Diarrhea 06/30/2025 CELIAC DISEASE, no gluten Lisinopril Cough High 07/24/2025 Sulfa (Sulfonamide Antibiotics) *Unknown 08/15/2013 Medications fluticasone (50 mcg per actuation) nasal solution (FLONASE) Inhale 2 Sprays to both nostrils once daily. 02/06/20 Active montelukast (SINGULAIR) 10 mg tablet Take 10 mg by mouth at bedtime if needed (alleriges). Active azelastine 137 mcg/actuation (ASTELIN) nasal spray Inhale 2 Sprays into affected nostril(s) at bedtime. Active cetirizine (ZYRTEC) 10 mg tablet Take 10 mg by mouth once daily. Active acetaminophen (TYLENOL EXTRA STRGTH) 500 mg tabletIndicati ons:S/P CABG x 4 Take 2 Tablets (1,000 mg) by mouth every 6 hours if needed for Pain. Max acetaminophen dose: 4000mg in 24 hrs. 07/16/20 25 Active aspirin chewable 81 mg tabletIndicati ons:S/P CABG x 4 Take 1 Tablet (81 mg) by mouth or nasogastric tube once daily. 07/17/20 25 Active benzonatate (TESSALON) 200 mg capsuleIndicat ions:S/P CABG x 4 Take 1 Capsule (200 mg) by mouth 3 times daily if needed for Cough. 30 Capsule 07/16/2025 6:47 PM CDT 07/16/20 25 Active Additional Information Patient not taking.Reported on 08/20/2025 clopidogreL (PLAVIX) 75 mg tabletIndicati ons:Cardiac arrest (HC),S/P CABG x 4 Take 1 Tablet (75 mg) by mouth once daily in the morning. 90 Tablet 3 07/16/2025 6:47 PM CDT 07/17/20 25 Active nitroglycerin 0.4 mg sublingual tabletIndicati ons:Cardiac arrest (HC),S/P CABG x [address] Place 1 Tablet (0.4 mg) under the tongue every 5 minutes if needed for Chest pain 1st choice (Hold if SBP less than 90 mmHg). Up to 3 tablets in 15 minutes. 9 Tablet 07/16/2025 6:47 PM CDT 07/16/20 25 Active rosuvastatin (CRESTOR) 20 mg tabletIndicati ons:Cardiac arrest (HC),S/P CABG x 4 Take 1 Tablet (20 mg) by mouth at bedtime. 90 Tablet 3 07/16/2025 6:47 PM CDT 07/16/20 25 Active oxyCODONE (ROXICODONE) 5 mg immediate release tabletIndicati ons:Cardiac arrest (HC),S/P CABG x 4 Take 1 to 2 Tablets (5-10 mg) by mouth every 6 hours if needed for Pain (For Moderate Pain.). 10 Tablet 07/16/2025 6:47 PM CDT 07/16/20 25 Active Additional Information Patient not taking.Reported on 08/20/2025 metoprolol succinate (TOPROL XL) 100 mg Sustained-Rele ase tabletIndicati ons:Cardiac arrest (HC),S/P CABG x 4 Take 1 Tablet (100 mg) by mouth once daily. 90 Tablet 3 08/20/20 25 Active metoprolol succinate (TOPROL XL) 100 mg Sustained-Rele ase tabletIndicati ons:Cardiac arrest (HC),S/P CABG x 4 Take 1 Tablet (100 mg) by mouth once daily. 30 Tablet 3 07/16/2025 6:47 PM CDT 07/17/20 25 025 Discontin ued(*Medi cation adjustmen t) lisinopriL (PRINIVIL; ZESTRIL) 10 mg tabletIndicati ons:Cardiac arrest (HC),S/P CABG x 4 Take 1 Tablet (10 mg) by mouth once daily. 30 Tablet 3 07/17/2025 9:20 AM CDT 07/17/20 25 025 Discontin ued(*Julieth ent states no longer taking) losartan (COZAAR) 25 mg tablet Take 25 mg by mouth. 07/24/20 25 025 Discontin ued(*Julieth ent states no longer taking) clopidogreL (PLAVIX) 75 mg tablet Take 75 mg by mouth. 07/17/20 025 Discontin ued(*Med complete/ Regimen complete/ Level of care change) metoprolol succinate (TOPROL XL) 50 mg sustained-rele ase tabletIndicati ons:Typical atrial flutter (HC),Atrial ectopy Take 1 Tablet (50 mg) by mouth once daily. For total of 150mg daily. 30 Tablet 07/25/20 25 025 Discontin ued(*Medi cation adjustmen t) losartan (COZAAR) 50 mg tablet 07/22/20 025 Discontin ued(*Julieth ent states no longer taking) metoprolol succinate (Toprol XL) 25 mg Sustained-Rele ase tabletIndicati ons:Typical atrial flutter (HC) Take 1 Tablet (25 mg) by mouth once daily. For total of metoprolol succinate 125mg daily. 30 Tablet 3 08/10/20 25 025 Discontin ued(*Med complete/ Regimen complete/ Level of care change) Active Problems Problem Noted Date Diagnosed Date Cardiac arrest 07/16/2025 Sinus node dysfunction 07/16/2025 S/P CABG x 4 07/10/2025 Overview (07/10/2025): Coronary artery bypass x4: GANNON to LAD, GIRMA to OM, SVG to Dg, SVG to PDA with Dr. Gould on 07/10/25 Non-sustained ventricular ta chycardia (HC)-on telemetry x 8 beats 07/03/2025 Pulmonary nodules-needs f/u CT around 12/2025 (6 month follow up 07/02/2025 Coronary artery disease invo lving oneida coronary artery of oneida heart without angina pectoris 07/02/2025 NSTEMI (non-ST elevated myocardial infarction) 0 06/30/2025 Collapse due to cardiac arrest 06/30/2025 Celiac disease 06/30/2025 Biceps rupture, distal, left, initial encounter 02/21/2024 Lumbar radiculopathy 10/12/2023 Obstructive sleep apnea syndrome in adult 2022 Encounters Date Type Department Care Team Description 08/22/2025 10:00 AM CDT Ancillary Procedure [facility] [address] [place] [address] Arrived 08/20/2025 11:00 AM CDT Office Visit [facility] [address] [facility] [address] [place] [address] Case, SHAMA Conrad Follow Up (6 week F/U to surgery. /Pt still experiencing dizzy spells throughout the day. (Recent telephone encounter with Rosalia 08/09). ) 08/20/2025 8:20 AM CDT - 08/20/2025 11:59 PM CDT Hospital Encounter [facility] [address] [place] [address] 08/20/2025 Travel 08/16/2025 8:23 AM CDT - 08/16/2025 11:59 PM CDT Hospital Encounter [facility] [address] [place] [address] 08/16/2025 Travel 08/15/2025 8:23 AM CDT - 08/15/2025 11:59 PM CDT Hospital Encounter [facility] [address] [place] [address] 08/15/2025 Travel 08/13/2025 8:26 AM CDT - 08/13/2025 11:59 PM CDT Hospital Encounter [facility] [address] [place] [address] 08/13/2025 Refill [facility] [address] [address] Anatoly Lindsey MD Refill Request (Metoprolol Succinate) 08/12/2025 Travel 08/10/2025 Orders Only [facility] [address] [place] [address] Lisa Echeverria RN <No scans attached> 08/10/2025 Orders Only [facility] [address] [place] [address] Anatoly Lindsey MD <No scans attached> 08/09/2025 8:25 AM CDT - 08/09/2025 11:59 PM CDT Hospital Encounter [facility] [address] [place] [address] 08/09/2025 Telephone [facility] [address] [address] Anatoly Lindsey MD Concerns 08/09/2025 Travel 08/06/2025 8:24 AM CDT - 08/06/2025 11:59 PM CDT Hospital Encounter [facility] [address] [place] [address] 08/06/2025 Travel 08/02/2025 8:28 AM CDT - 08/02/2025 11:59 PM CDT Hospital Encounter [facility] [address] [place] [address] 08/01/2025 8:25 AM CDT - 08/01/2025 11:59 PM CDT Hospital Encounter [facility] [address] [place] [address] 08/01/2025 Telephone [facility] [address] [address] Anatoly Lindsey MD Appointment Request 08/01/2025 Travel 07/30/2025 8:29 AM CDT - 07/30/2025 11:59 PM CDT Hospital Encounter [facility] [address], [place] [address] 07/29/2025 10:28 AM CDT - 07/29/2025 2:16 PM CDT Emergency [facility] [address] [place] [address] Darinel Caban PA Meyers, MD Angella Downey (Primary Dx) Discharge Disposition: Home Self Care 07/29/2025 Telephone [facility] [address] [address] Baljeet Bond MD 07/29/2025 Travel 07/27/2025 9:00 AM CDT - 07/27/2025 11:59 PM CDT Hospital Encounter [facility] [address] [place] [address] Radha Arteaga PA 07/27/2025 Travel 07/26/[address] [address] Princess Soliz RN emergency dept visit 07/26/2025 Telephone [facility] [address] [place] [phone] Cari Rodríguez RN Atrial Fibrillation; Post-op 07/26/2025 Telephone [facility] [address] [address] Anatoly Lindsey MD Concerns 07/25/2025 4:35 PM CDT - 07/25/2025 7:57 PM CDT [address] [address] Kwame Soni MD Typical atrial flutter (HC) (Primary Dx); Atrial ectopy Discharge Disposition: Home Self Care 07/25/2025 Travel 07/25/2025 Orders Only [address] [address] Princess Soliz RN <No scans attached> 07/18/2025 Telephone [facility] [place] [address] [facility] [place] [address] [place] [address] Caitlin Arredondo PA Cardiology Appointment 07/16/2025 12:57 PM CDT Anesthesia Event [facility] [address] [place] [address] Troy Caicedo MD Santiago, Matthew Ryan, JADIEL 07/10/2025 12:36 PM CDT Anesthesia Event [facility] [address] [place] [address] Jayden Looney MD 07/10/2025 12:01 PM CDT - 07/10/2025 5:49 PM CDT Surgery [facility] [address], [place] [address] Colin Harman MD STERNOTOMY, LATONYA BY DR. ESPINOSA, BILATERAL GANNON TAKEDOWN, ENDOSCOPIC LEFT LEG VEIN HARVEST, CORONARY ARTERY BYPASS X 4, INSERTION OF TEMPORARY VENTRICULAR PACING WIRES 06/30/2025 12:03 PM CDT - 07/17/2025 11:34 AM CDT Hospital Encounter [facility] [address], [place] [address] Ruma Chavez MD Friedman, MD Jahaira Hector, Denisse Shell MD [facility] Hospitalists [facility], MD Luis Fernando Pinzon Sebastian Alejandro, MD Cardiac arrest (HC) (Primary Dx); Syncope, unspecified syncope type; Cardiovascular symptoms; Coronary artery disease involving oneida coronary artery of oneida heart without angina pectoris; S/P CABG x 4 Discharge Disposition: Home Self Care 06/30/2025 8:37 AM CDT - 06/30/2025 10:55 AM CDT Emergency [facility] [address], [place] [address] Kwame Soni MD Discharge Disposition: Health Care Facility Not On List 06/30/2025 Travel 06/30/2025 Telephone [facility] [address] [place] [address] Hamid, Eden, MBChB from Last 3 Months Immunizations Immunization Administration Dates Next Due Influenza A (H1N1), Inactivated (Age >=3 Years) 11/19/2009 Influenza Virus, Unspecified 08/08/2013,11/19/19 10 Tdap 07/10/2011 Social History Tobacco Use Types Packs/Day Years Used Date Smoking Tobacco: Never Passive Smoke Exposure: Never Smokeless Tobacco: Never Tobacco Cessation:Counseling Given: No Alcohol Use Standard Drinks/Week Comments Yes 0 (1 standard drink = 0.6 oz pur e alcohol) occasional Social Connections Answer Date Recorded Do you often feel lonely or isolated from those around you? 0 07/01/2025 Alcohol Use Answer Date Recorded How often do you have a drink containing alcohol ? 1 08/20/2025 How many drinks containing a lcohol do you have on a typical day when you are drinking? 0 08/20/2025 Frequency of Binge Drinking Not on file 08/08 Financial Resource Strain Answer Date R ecorded Difficulty of Paying Living Expenses 3 07/01/2025 Difficulty of Paying Living Expenses Not on file 07/01/2025 Food Insecurity Answer Date Recorded Do you worry your food will run out before you are able to buy more? 1 07/01/2025 Transportation Needs Answer Date Record ed Does lack of transportation keep you from medica l appointments? 1 07/01/2025 Does lack of transportation keep you from work, meetings or getting things that you need? 1 07/01/2025 Housing Stability Answer Date Recorded What is your housing situation today? 1 07/01/2025 Interpersonal Safety Answer Date Record ed Are you being hit, kicked, p ushed or yelled at (see row info)? No 07/29/2025 Interpersonal Safety Abuse 12 - 18 Not on file 07/29/2025 Interpersonal Safety Ambulatory Vulnerability No t on file 07/29/2025 Utilities Answer Date Recorded Do you have trouble paying f or utilities (for example, heat, electricity, water, phone)? 1 07/01/2025 Sex and Gender Information Value Date Recorded Sex Assigned at Not on file Legal Sex Male 7:13 AM [employer]PER[employer] Gender Identity Not on file Sexual Orientation Not on file Obstetrics History Last Filed Vital Signs Vital Sign Reading Time Taken Comments Blood Pressure 100/62 08/20/2025 11:09 AM CDT Pulse 65 08/20/2025 11:09 AM CDT Temperature 36.4 C (97.5 F) 07/29/2025 10:34 AM CDT Respiratory Rate 18 07/29/2025 10:34 AM CDT Oxygen Saturation 97% 08/20/2025 11:09 AM CDT Inhaled Oxygen Concentration - - Weight 83 kg (182 lb 14.4 oz) 08/20/2025 11:09 A M CDT Height 182.9 cm (6') 08/20/2025 11:09 AM CDT Body Mass Index 24.81 08/20/2025 11:09 AM CDT Plan of Treatment Upcoming Encounters Date Type Department Care Team (Late st Contact Info) Description 08/23/2025 8:30 AM CDT Appointment [address] [place] [address] 08/27/2025 8:30 AM CDT Appointment [address] [address] 08/29/2025 8:30 AM CDT Appointment [address] [place] [address] 08/30/2025 8:30 AM CDT Appointment [address] [place] [address] 09/03/2025 8:30 AM CDT Appointment [facility] [address] [place] [address], [place] [address] 09/05/2025 8:30 AM CDT Appointment [facility] [address] [place] [address], [place] [address] 09/06/2025 8:30 AM CDT Appointment [address] [place] [address] 09/10/2025 8:30 AM [employer] Appointment [facility] [address] [place] [address], [place] [address] 09/12/2025 8:30 AM [employer] SUPER[employer]OR Appointment [address] [place] [address] 09/13/2025 8:30 AM [employer] SUPERVISOR Appointment [facility] [address] [place] [address] 09/17/2025 8:30 AM [employer] SUPERVISOR Appointment [facility] [address] [place] [address] 09/19/2025 8:30 AM [employer] SUPERVISOR Appointment [facility] [address] [place] [address] 09/20/2025 8:30 AM [employer] SUPERVISOR Appointment [facility] [address] [place] [address] 09/24/2025 8:30 AM [employer] SUPERVISOR Appointment [facility] [address] [place] [address] 09/26/2025 8:30 AM [employer] SUPER[employer]OR Appointment [facility] [address] [place] [address] 09/27/2025 8:30 AM [employer] SUPERVISOR Appointment [facility] [address] [place] [address] 10/01/2025 8:30 AM [employer] SUPERVISOR Appointment [facility] [address] [place] [address] 10/03/2025 8:30 AM [employer] SUPERVISOR Appointment [facility] [address] [place] [address] 10/08/2025 8:30 AM [employer] SUPERVISOR Appointment [facility] [address] [place] [address] 10/10/2025 8:30 AM [employer] SUPER[employer]OR Appointment [facility] [address] [place] [address] 10/11/2025 8:30 AM [employer] SUPERVISOR Appointment [facility] [address] [place] [address] 10/15/2025 8:30 AM [employer] SUPER[employer]OR Appointment [facility] [address] [place] [address] 10/17/2025 8:30 AM [employer] SUPER[employer]OR Appointment [facility] [address] [place] [address] 10/17/2025 1:30 PM [employer] SU[employer]OR Cardiac Device Check [facility] [address] [place] [address] 10/18/2025 8:30 AM [employer] SUPER[employer]OR Appointment [facility] [address] [place] [address] 10/22/2025 8:30 AM [employer] SUPERVISOR Appointment [facility] [address] [place] [address] 10/23/2025 11:30 AM [employer] SUPER[employer]OR Office Visit [facility] [place] [address] [place] [address] [facility] [place] [address] Anatoly Lindsey MD [address] [place] [address] 10/24/2025 8:30 AM [employer] SUPER[employer]OR Appointment [facility] [address] [address] Health Maintenance Due Date Last Done Comments Depression screening for age 12+ 1974 HIV for age 15-65 1977 Pneumococcal series for age 50+ (1 of 2 - PCV) 1981 Colonoscopy through age 75 2007 Zoster (shingles) series for age 50+ (1 of 2) 2012 Tetanus booster 07/10/2021 07/10/2011 RSV vaccine for adults or (1 - Risk 60-74 years 1-dose series) 2022 Influenza Vaccine (#1) 2025 08/08/2013, 2009 BMI (ht and wt on same day) for age 18+ 08/20/2026 08/20/2025, 07/04/2018 Lipids for age 45-75 06/30/2030 06/30/2025 COVID-19 vaccine series Completed 08/29/20, 10/07/2023, 03/31/2022, Additional history exists Hepatitis C screening for age 18-79 Completed 07/02/2025 Hepatitis B series for 19+ Aged Out N o longer eligible based on patient's age to complete this topic Medical Devices Implanted Type Area Media Production Operator Device Identifier Shelf Expiration Date Model / Serial / Lot Screw Bicep 7x10mm Bicepsbutton Kit Biocomposite Distal - [id number] Implanted:Qty: 1 on 02/22/2024 by Rob Bartlett MD at [facility] Left: Arm [employer] 12/08/2025 [id number] / / [id number] Procedures Procedure Name Priority Date/Time Associated Diagnosis Comments ECHO TTE LIMITED WO CONTRAST W COLOR W LTD DOPPLER Routine 08/22/2025 10:34 AM CDT CAD (coronary artery disease) SCAN-CARDIAC REHABILITATION 08/20/2025 8:25 AM CDT SCAN-CARDIAC REHABILITATION 08/16/2025 8:30 AM CDT SCAN-CARDIAC REHABILITATION 08/15/2025 8:28 AM CDT SCAN-CARDIAC REHABILITATION 08/15/2025 8:28 AM CDT SCAN-CARDIAC REHABILITATION 08/13/2025 8:29 AM CDT SCAN-CARDIAC REHABILITATION 08/09/2025 8:28 AM CDT SCAN-CARDIAC REHABILITATION 08/06/2025 8:30 AM CDT SCAN-CARDIAC REHABILITATION 08/02/2025 8:30 AM CDT SCAN-CARDIAC REHABILITATION 08/01/2025 8:28 AM CDT SCAN-CARDIAC REHABILITATION 07/30/2025 8:35 AM CDT TROPONIN T (HS) ONE TIME Timed 025 1:[address] CHEST PULMONARY EMBOLUS PE ABDOMEN PELVIS W STAT 07/29/2025 11:50 AM CDT CBC WITH AUTO DIFFERENTIAL STAT 07/29/2025 11:08 AM CDT TROPONIN T (HS) ACUTE W/2HR REFLEX STAT 07/29/2025 11:08 AM CDT COMP METABOLIC PANEL STAT 07/29/2025 11:08 AM CDT PROTIME-INR STAT 07/29/2025 11:08 AM CDT CBC WITH AUTO DIFFERENTIAL STAT 07/29/2025 11:08 AM CDT EKG 12 LEAD STAT 07/29/2025 10:35 AM CDT SCAN-CARDIAC REHABILITATION 07/27/2025 9:33 AM CDT TROPONIN T (HS) ONE TIME Timed 7:09 PM CDT CBC WITH AUTO DIFFERENTIAL STAT 07/25/2025 5:00 PM CDT MAGNESIUM STAT 07/25/2025 5:00 PM CDT TROPONIN T (HS) ACUTE W/2HR REFLEX STAT 07/25/2025 5:00 PM CDT BASIC METABOLIC PANEL STAT 07/25/2025 5:00 PM CDT PROTIME-INR STAT 07/25/2025 5:00 PM CDT CBC WITH AUTO DIFFERENTIAL STAT 07/25/2025 5:00 PM CDT EKG 12 LEAD STAT 07/25/2025 4:59 PM CDT EKG 12 LEAD STAT 07/25/2025 4:35 PM CDT SCAN-CARDIAC STRIP 07/17/2025 9: 43 AM CDT ICD ANALYSIS DUAL WITHOUT REPROGRAM Routine 07/17/2025 9:34 AM CDT EKG 12 LEAD Early AM 07/17/2025 6:20 AM CDT POTASSIUM Early AM 07/17/2025 6:17 AM CDT MAGNESIUM Timed 07/17/2025 6:17 AM CDT CREATININE Early AM 07/17/2025 6:17 AM CDT HEMOGLOBIN Early AM 07/17/2025 6:17 AM CDT PLATELET COUNT Timed 07/17/2025 6:17 AM CDT XR CHEST 2 VIEWS PA AND LATERAL Routine 07/17/2025 6:17 AM CDT SCAN-CARDIAC STRIP 07/17/2025 1: 25 AM CDT SCAN-CARDIAC STRIP 07/16/2025 5: 40 PM CDT EP ICD Routine 07/16/2025 1:28 PM CDT SCAN-CARDIAC STRIP 07/16/2025 9: 50 AM CDT XR CHEST 1 VIEW PORTABLE Routine 025 7:55 AM CDT MAGNESIUM KAYLIE 07/16/2025 6:26 AM CDT CBC W PLT NO DIFF Early AM 07/16/2025 6:2 6 AM CDT BASIC METABOLIC PANEL Early AM 07/16/2025 6:26 AM CDT POTASSIUM Timed 07/15/2025 9:14 PM CDT POTASSIUM Timed 07/15/2025 3:08 PM CDT MAGNESIUM KAYLIE 07/15/2025 8:21 AM CDT CBC W PLT NO DIFF Early AM 07/15/2025 8:2 1 AM CDT BASIC METABOLIC PANEL Early AM 07/15/2025 8:21 AM CDT XR CHEST 1 VIEW PORTABLE Routine 025 8:12 AM CDT SCAN-CARDIAC STRIP 07/15/2025 7: 46 AM CDT SCAN-CARDIAC STRIP 07/14/2025 9: 00 PM CDT SCAN-CARDIAC STRIP 07/14/2025 10:58 AM CDT XR CHEST 1 VIEW PORTABLE Routine 025 8:46 AM CDT MAGNESIUM KAYLIE 07/14/2025 7:40 AM CDT CBC W PLT NO DIFF Early AM 07/14/2025 7:4 0 AM CDT BASIC METABOLIC PANEL Early AM 07/14/2025 7:40 AM CDT SCAN-CARDIAC STRIP 07/14/2025 3: 26 AM CDT MAGNESIUM Timed 07/13/2025 5:56 PM CDT ECHO TTE LIMITED WO CONTRAST W COLOR W LTD DOPPLER Routine 07/13/2025 3:49 PM CDT GLUCOSE METER Timed 07/13/2025 11:13 AM CDT SCAN-CARDIAC STRIP 07/13/2025 10:12 AM CDT GLUCOSE METER Timed 07/13/2025 7:25 AM CDT MAGNESIUM Timed 07/13/2025 6:32 AM CDT HEMOGLOBIN Early AM 07/13/2025 6:32 AM CDT BASIC METABOLIC PANEL Early AM 07/13/2025 6:32 AM CDT PROTIME-INR Early AM 07/13/2025 6:32 AM CDT SCAN-CARDIAC STRIP 07/13/2025 5: 35 AM CDT SCAN-CARDIAC STRIP 07/13/2025 3: 13 AM CDT SCAN-CARDIAC STRIP 07/13/2025 3: 13 AM CDT SCAN-CARDIAC STRIP 07/13/2025 3: 12 AM CDT SCAN-CARDIAC STRIP 07/13/2025 3: 07 AM CDT EKG 12 LEAD KAYLIE 07/13/2025 2:26 AM CDT GLUCOSE METER Timed 07/12/2025 9:26 PM CDT SCAN-CARDIAC STRIP 07/12/2025 6: 26 PM CDT GLUCOSE METER Timed 07/12/2025 4:56 PM CDT SCAN-CARDIAC STRIP 07/12/2025 3: 03 PM CDT POTASSIUM KAYLIE 07/12/2025 2:39 PM CDT [facility] DRAW ONLY Timed 07/12/2025 2:39 PM CDT MAGNESIUM Timed 07/12/2025 2:39 PM CDT GLUCOSE METER Timed 07/12/2025 11:37 AM CDT SCAN-CARDIAC STRIP 07/12/2025 9: 56 AM CDT GLUCOSE METER Timed 07/12/2025 6:20 AM CDT MAGNESIUM Early AM 07/12/2025 3:50 AM CDT O2 SATURATION,MEASURED Early AM 3:50 AM CDT [facility] D[facility] ONLY Early AM 07/12/2025 3:50 AM CDT CBC W PLT NO DIFF Early AM 07/12/2025 3:5 0 AM CDT BASIC METABOLIC PANEL Early AM 07/12/2025 3:50 AM CDT PROTIME-INR Early AM 07/12/2025 3:50 AM CDT MAGNESIUM Timed 07/12/2025 12:14 AM CDT GLUCOSE METER Timed 07/11/2025 8:58 PM CDT GLUCOSE METER Timed 07/11/2025 5:38 PM CDT MAGNESIUM Timed 07/11/2025 1:58 PM CDT ECHO LATONYA INTRAOPERATIVE Routine 07/11/20 25 1:11 PM CDT GLUCOSE METER Timed 07/11/2025 12:08 PM CDT O2 SATURATION,MEASURED Timed 12:00 PM CDT XR CHEST 1 VIEW PORTABLE STAT 025 11:05 AM CDT LACTATE ARTERIAL STAT 07/11/2025 8:10 AM CDT O2 SATURATION,MEASURED STAT 8:10 AM CDT GLUCOSE METER Timed 07/11/2025 7:56 AM CDT EKG 12 LEAD Early AM 07/11/2025 7:40 AM CDT HEPATIC FUNCTION PANEL KAYLIE 6:53 AM CDT [facility] D[facility] Early AM 07/11/2025 6:53 AM CDT CARDIAC THROMBOELASTOGRAPHY Early AM 07/11/2025 3:52 AM CDT GLUCOSE METER Timed 07/11/2025 3:24 AM CDT MAGNESIUM Early AM 07/11/2025 3:21 AM CDT PLATELET COUNT Early AM 07/11/2025 3:21 AM CDT PROTIME-INR Early AM 07/11/2025 3:21 AM CDT HEMOGLOBIN Early AM 07/11/2025 3:21 AM CDT BASIC METABOLIC PANEL Early AM 07/11/2025 3:21 AM CDT XR CHEST 1 VIEW PORTABLE Routine 025 2:12 AM CDT GLUCOSE METER Timed 07/11/2025 12:04 AM CDT [facility] DRAW ONLY STAT 07/10/2025 10:33 PM CDT GLUCOSE METER Timed 07/10/2025 10:19 PM CDT COMPREHENSIVE BLOOD GAS ARTERIAL Timed 07/10/2025 8:57 PM CDT GLUCOSE METER Timed 07/10/2025 7:54 PM CDT GLUCOSE METER Timed 07/10/2025 6:59 PM CDT CARDIAC THROMBOELASTOGRAPHY STAT 07/10/2025 6:47 PM CDT O2 SATURATION,MEASURED Timed 6:02 PM CDT XR CHEST 1 VIEW PORTABLE STAT 025 5:51 PM CDT LACTATE ARTERIAL Timed 07/10/2025 5:40 PM CDT FIBRINOGEN,QUANTITATIVE STAT 07/10/20 25 5:40 PM CDT THROMBIN TIME STAT 07/10/2025 5:40 PM CDT PROTIME-INR STAT 07/10/2025 5:40 PM CDT APTT STAT 07/10/2025 5:40 PM CDT PLATELET COUNT STAT 07/10/2025 5:40 PM CDT POTASSIUM STAT 07/10/2025 5:40 PM CDT HEMOGLOBIN STAT 07/10/2025 5:40 PM CDT ARTERIAL BLOOD GAS STAT 07/10/2025 5: 40 PM CDT MAGNESIUM Timed 07/10/2025 5:40 PM CDT EKG 12 LEAD STAT 07/10/2025 5:36 PM CDT GLUCOSE METER Timed 07/10/2025 5:34 PM CDT TRANSFUSE CRYOPRECIPITATE (NURSE COMMUNICATION ORDER) Today 07/10/2025 5:03 PM CDT TRANSFUSE CRYOPRECIPITATE (NURSE COMMUNICATION ORDER) Today 07/10/2025 5:01 PM CDT CRYOPRECIPITATE ORDER STAT 07/10/2025 4:38 PM CDT CRYOPRECIPITATE EA UNIT STAT 07/10/20 4:35 PM CDT CRYOPRECIPITATE EA UNIT STAT 07/10/20 4:35 PM CDT CARDIAC THROMBOELASTOGRAPHY STAT 07/10/2025 3:58 PM CDT FIBRINOGEN,QUANTITATIVE STAT 07/10/20 3:58 PM CDT PLATELET COUNT STAT 07/10/2025 3:58 PM CDT LATONYA Routine 07/10/2025 1:17 PM CDT [facility] KIT PR5 Routine 07/10/2025 1:17 PM CDT [facility] DRSG PR1 Routine 07/10/2025 1:17 PM CDT [facility] PR5 Routine 07/10/2025 1:17 PM CDT [facility] TUBING PR5 Routine 07/10/2025 1:17 PM CDT [facility] KIT MONITORING PR5 Routine 07/10/20 1:17 PM CDT [facility] TUBING PR1 Routine 07/10/2025 1:17 PM CDT [facility] ANES US GUIDE FOR VASC ACCESS Routine 07/10/2025 1:17 PM CDT [facility] CATH INFUSION PR100 Routine 025 1:17 PM CDT CVC TRIPLE LUMEN Routine 07/10/2025 1:17 PM CDT ENDOTRACHEAL TUBE Routine 07/10/2025 12:57 PM CDT ENDOTRACHEAL TUBE Routine 07/10/2025 12:57 PM CDT [facility] AN IV START Routine 07/10/2025 12:50 PM CDT [facility] AN IV START Routine 07/10/2025 12:50 PM CDT [facility] AN IV START Routine 07/10/2025 12:50 PM CDT [facility] AN IV START Routine 07/10/2025 12:50 PM CDT ENDOSCOPIC HARVEST VEIN 07/10/20 12:05 PM CDT CAD Case Notes BYPASS CORONARY ARTERY W/EVH, BILATERAL MAMMARIES BYPASS CORONARY ARTERY 01 2024 12:05 PM CDT CAD Case Notes BYPASS CORONARY ARTERY W/EVH, BILATERAL MAMMARIES [facility] KIT PR5 Routine 07/10/2025 11:47 AM CDT [facility] DRSG PR5 Routine 07/10/2025 11:47 AM CDT [facility] DRSG PR1 Routine 07/10/2025 11:47 AM CDT [facility] TUBING PR20 Routine 07/10/2025 11:47 AM CDT [facility] TUBING PR1 Routine 07/10/2025 11:47 AM CDT [facility] ANES ARTERIAL CATH FOR SAMPLE MONITOR TRANS Routine 07/10/2025 11:47 AM CDT [facility] ANES US GUIDE FOR VASC ACCESS Routine 07/10/2025 11:47 AM CDT HC CATH PR5 Routine 07/10/2025 11:47 AM CDT TYPE & SCREEN Early AM 07/10/2025 8:14 AM CDT MAGNESIUM Early AM 07/10/2025 8:14 AM CDT PROTIME-INR Early AM 07/10/2025 8:14 AM CDT BASIC METABOLIC PANEL Early AM 07/10/2025 8:14 AM CDT CBC W PLT NO DIFF Early AM 07/10/2025 8:1 4 AM CDT SCAN-CARDIAC STRIP 07/10/2025 12:37 AM CDT SCAN-OPERATIVE/PROCEDURE REPORT 07/10/2025 12:00 AM CDT MAGNESIUM Timed 07/09/2025 8:23 PM CDT SCAN-CARDIAC STRIP 07/09/2025 3: 36 PM CDT SCAN-CARDIAC STRIP 07/09/2025 10:37 AM CDT CREATININE KAYLIE 07/09/2025 7:01 AM CDT MAGNESIUM Early AM 07/09/2025 7:01 AM CDT POTASSIUM Early AM 07/09/2025 7:01 AM CDT SCAN-CARDIAC STRIP 07/08/2025 7: 27 PM CDT MAGNESIUM Timed 07/08/2025 3:21 PM CDT SCAN-CARDIAC STRIP 07/08/2025 12:36 PM CDT MAGNESIUM Early AM 07/08/2025 6:30 AM CDT POTASSIUM Early AM 07/08/2025 6:30 AM CDT SCAN-CARDIAC STRIP 07/08/2025 2: 51 AM CDT MAGNESIUM Timed 07/07/2025 5:25 PM CDT SCAN-CARDIAC STRIP 07/07/2025 3: 00 PM CDT MAGNESIUM Early AM 07/07/2025 6:34 AM CDT ELECTROLYTE PANEL Early AM 07/07/2025 6:3 4 AM CDT SCAN-CARDIAC STRIP 07/06/2025 10:15 PM CDT SCAN-CARDIAC STRIP 07/06/2025 5: 05 PM CDT CREATININE Early AM 07/06/2025 6:27 AM CDT ELECTROLYTE PANEL Early AM 07/06/2025 6:2 7 AM CDT SCAN-CARDIAC STRIP 07/06/2025 4: 15 AM CDT SCAN-CARDIAC STRIP 07/05/2025 8: 49 PM CDT SCAN-CARDIAC STRIP 07/05/2025 9: 12 AM CDT BASIC METABOLIC PANEL Early AM 07/05/2025 6:34 AM CDT SCAN-CARDIAC STRIP 07/05/2025 3: 50 AM CDT MAGNESIUM Timed 07/04/2025 3:48 PM CDT SCAN-CARDIAC STRIP 07/04/2025 2: 43 PM CDT MAGNESIUM Early AM 07/04/2025 6:13 AM CDT TSH Early AM 07/04/2025 6:13 AM CDT HEMOGLOBIN Early AM 07/04/2025 6:13 AM CDT PROTIME-INR Early AM 07/04/2025 6:13 AM CDT PLATELET COUNT Early AM 07/04/2025 6:13 AM CDT HEPATIC FUNCTION PANEL Early AM 6:13 AM CDT CREATININE Early AM 07/04/2025 6:13 AM CDT ELECTROLYTE PANEL Early AM 07/04/2025 6:1 3 AM CDT SCAN-CARDIAC STRIP 07/04/2025 3: 04 AM CDT US VEIN MAPPING LOWER EXTREMITY BILATERAL PORTABLE Routine 07/03/2025 7:35 PM CDT POTASSIUM STAT 07/03/2025 5:48 PM CDT MAGNESIUM Timed 07/03/2025 5:48 PM CDT TYPE & SCREEN Today 07/03/2025 12:13 PM CDT SCAN-CARDIAC STRIP 07/03/2025 11:48 AM CDT HCHG ACTIVATED CLOTTING TM CV Timed 07/03/2025 11:09 AM CDT COMPREHENSIVE BLOOD GAS MIXED VENOUS Timed 07/03/2025 10:54 AM CDT CVL CORONARY ANGIOGRAM POSS PCI Routine 07/03/2025 9:59 AM CDT Cardiovascular symptoms BASIC METABOLIC PANEL KAYLIE 07/03/2025 9:44 AM CDT MAGNESIUM Early AM 07/03/2025 9:44 AM CDT POTASSIUM Early AM 07/03/2025 9:44 AM CDT ACUTE HEPATITIS PANEL KAYLIE 07/02/2025 9:25 PM CDT MAGNESIUM Timed 07/02/2025 9:25 PM CDT SCAN-CARDIAC STRIP 07/02/2025 12:08 PM CDT SCAN-CARDIAC STRIP 07/02/2025 9: 54 AM CDT SCAN-CARDIAC STRIP 07/02/2025 9: [address] CARDIAC CORONARY ARTERIES CV DUAL READ STAT 07/02/2025 9:[address] CARDIAC CORONARY ARTERIES RAD DUAL READ STAT 07/02/2025 9:32 AM CDT HEPATIC FUNCTION PANEL KAYLIE 7:32 AM CDT BASIC METABOLIC PANEL KAYLIE 07/02/2025 7:32 AM CDT POTASSIUM Early AM 07/02/2025 7:32 AM CDT MAGNESIUM Early AM 07/02/2025 7:32 AM CDT SCAN-CARDIAC STRIP 07/02/2025 4: 07 AM CDT WHITE BLOOD COUNT Early AM 07/01/2025 9:1 1 AM CDT PLATELET COUNT Early AM 07/01/2025 9:11 AM CDT HEMOGLOBIN Early AM 07/01/2025 9:11 AM CDT T4,FREE KAYLIE 07/01/2025 7:02 AM CDT BASIC METABOLIC PANEL Early AM 07/01/2025 7:02 AM CDT MAGNESIUM Timed 07/01/2025 7:02 AM CDT SCAN-CARDIAC STRIP 06/30/2025 10:42 PM CDT ECHO TTE COMPLETE WO CONTRAST STAT 06/30/2025 5:33 PM CDT EXTRA TUBE GOLD/SST Today 06/30/2025 4 :04 PM CDT MAGNESIUM Today 06/30/2025 4:03 PM CDT POTASSIUM Today 06/30/2025 4:03 PM CDT TROPONIN T (HS) ONE TIME Timed 025 4:03 PM CDT SCAN-CARDIAC STRIP 06/30/2025 3: 12 PM CDT EKG 12 LEAD STAT 06/30/2025 12:28 PM CDT LIPID PANEL KAYLIE 06/30/2025 12:24 PM CDT TROPONIN T (HS) ACUTE W/2HR REFLEX STAT 06/30/2025 12:[address] CHEST PE STUDY STAT 06/30/2025 10:[address] HEAD BRAIN WO STAT 06/30/2025 10:38 AM CDT EKG 12 LEAD Timed 06/30/2025 9:20 AM CDT D-DIMER,QUANTITATIVE KAYLIE 06/30/2025 8:54 AM CDT CBC WITH AUTO DIFFERENTIAL STAT 06/30/2025 8:54 AM CDT TSH STAT 06/30/2025 8:54 AM CDT MAGNESIUM STAT 06/30/2025 8:54 AM CDT APTT STAT 06/30/2025 8:54 AM CDT PROTIME-INR STAT 06/30/2025 8:54 AM CDT TROPONIN T (HS) ACUTE W/2HR REFLEX STAT 06/30/2025 8:54 AM CDT HEPATIC FUNCTION PANEL STAT 8:54 AM CDT BASIC METABOLIC PANEL STAT 06/30/2025 8:54 AM CDT CBC WITH AUTO DIFFERENTIAL STAT 06/30/2025 8:54 AM CDT EKG 12 LEAD STAT 06/30/2025 8:38 AM CDT from Last 3 Months Results * ECHO TTE LIMITED WO CONTRAST W COLOR W LTD DOPPLER (08/22/2025 10:34 AM CDT) Only the most recent of2 resultswithin the time period is included. AORTIC VALVE MEAN PG 3 mmHg EJECTION FRACTION 74 % PEAK TR VELOCITY 2.6 m/s LVEDD 4.7 cm Anatomical Region Laterality Modality Ultrasound 08/22/2025 10:0 4 AM CDT Narrative 08/22/2025 10:53 AM CDT ECHOCARDIOGRAM CHAPO AMADOR : 1960 64 years Study Date: 08/22/2025 10:04:51 AM Gender: M BP: 130/74 mmHg Height: 183.00 cm BSA: 2.05 m Weight: 83.00 kg Tech: [facility] Referring MD: RENATO MARTINEZ [facility] Site: [facility] Reading Location: Mobile-OP Patient Location: Outpatient. Procedure: Limited 2D , Color Doppler and Limited Spectral Doppler. Indication for study: CAD Cardiac Rhythm: Irregular.Study quality: Fair. Final Impressions: Limited Echocardiogram performed 1. Normal left ventricular size, mildly increased wall thickness, normal global systolic function, calculated EF of 74 %. 2. Right ventricular cavity size is normal, global systolic RV function is normal. 3. Normal left atrium size. 4. The aortic valve is normal and trileaflet, no stenosis and trivial regurgitation. 5. The mitral valve is normal, mild mitral regurgitation. 6. The tricuspid valve is normal, mild-moderate tricuspid regurgitation. 7. The inferior vena cava is dilated, respiratory size variation greater than 50%. 8. No pericardial effusion. Chamber Sizes and Function Normal left ventricular size, mildly increased wall thickness, normal global systolic function, calculated EF of 74 %. No resting regional wall motion abnormality visualized. Left atrial size is normal. Right ventricular cavity size is normal, global systolic RV function is normal. The right atrium is normal. Right atrial volume index is 33 ml/m . Right atrial area is 22 cm . The pulmonary artery is not well visualized. The sinus of Valsalva is normal sized. The ascending aorta is normal sized. Valves, RV Pressures and Diastolic Function The aortic valve is normal in structure and trileaflet, no stenosis and trivial regurgitation. The mitral valve is normal in structure, mild mitral regurgitation. The tricuspid valve is normal in structure, mild-moderate tricuspid regurgitation. The tricuspid regurgitant velocity is 2.6 m/s, the estimated right ventricular systolic pressure is 27 mmHg plus right atrial pressure. The pulmonic valve is not well visualized. Trace pulmonic regurgitation is present on color flow. Masses, Effusion, Shunts There is no pericardial effusion. The inferior vena cava is dilated, respiratory size variation greater than 50%. MEASUREMENTS AND CALCULATIONS 2-D Measurements and LV Function: LVID (d) 4.7 cm Planimetered EF 74 % LVID (s) 3.2 cm LV FS% (2D) 32 % IVS (d) 1.3 cm LVOT diameter 2.6 cm LVPW (d) 1.0 cm HR 55 bpm Ao Sinus 3.7 cm LA Vol index 26 ml/m2 Ao Sinus ULN 4.1 cm RA Vol index 33 ml/m2 Asc Ao 3.2 cm RA area 22 cm Asc Ao ULN 4.1 cm RV Basal Diam 4.0 cm LA 3.7 cm RV Mid Diam 2.3 cm Diastology: Mitral Tissue Doppler E Peak 0.73 m/s e', Septum 0.12 m/s DT 288 msec Aortic Valve: Vmax 1.3 m/s SETH (V) 4.54 cm VTI 0.24 m SETH (I) 5.10 cm LVOT V max 1.1 m/s Max PG 6 mmHg LVOT VTI 0.24 m Mean PG 3 mmHg SV 124 ml Dim Index 0.99 SV index 60 ml/m CO 6.8 l/min CI 3.3 l/min/m Mitral Valve: MVA 2.6 cm MV P 1/2 84 msec Tricuspid Valve and estimated PA pressures: TR Vmax 2.6 m/s TAPSE 1.7 cm TR maxG 27 mmHg . This study was interpreted by an [facility] accredited facility. CC: HIM (med records) [facility]. Final Procedure Note Eden Lama, [facility] - 08/22/2025 ECHOCARDIOGRAM CHAPO AMADOR : 1960 64 years Study Date: 08/22/2025 10:04:51 AM Gender: M BP: 130/74 mmHg Height: 183.00 cm BSA: 2.05 m Weight: 83.00 kg Tech: SORAYA Referring [facility] Site[facility] Reading Location: Mobile-OP Patient Location: Outpatient. Procedure: Limited 2D , Color Doppler and Limited Spectral Doppler. Indication for study: CAD Cardiac Rhythm: Irregular.Study quality: Fair. Final Impressions: Limited Echocardiogram performed 1. Normal left ventricular size, mildly increased wall thickness, normalglobal systolic function, calculated EF of 74 %. 2. Right ventricular cavity size is normal, global systolic RV functionis normal. 3. Normal left atrium size. 4. The aortic valve is normal and trileaflet, no stenosis and trivialregurgitation. 5. The mitral valve is normal, mild mitral regurgitation. 6. The tricuspid valve is normal, mild-moderate tricuspidregurgitation. 7. The inferior vena cava is dilated, respiratory size variation greaterthan 50%. 8. No pericardial effusion. Chamber Sizes and Function Normal left ventricular size, mildly increased wall thickness, normalglobal systolic function, calculated EF of 74 %. No resting regional wallmotion abnormality visualized. Left atrial size is normal. Rightventricular cavity size is normal, global systolic RV function is normal.The right atrium is normal. Right atrial volume index is 33 ml/m . Rightatrial area is 22 cm . The pulmonary artery is not well visualized. Thesinus of Valsalva is normal sized. The ascending aorta is normal sized. Valves, RV Pressures and Diastolic Function The aortic valve is normal in structure and trileaflet, no stenosis andtrivial regurgitation. The mitral valve is normal in structure, mildmitral regurgitation. The tricuspid valve is normal in structure,mild-moderate tricuspid regurgitation. The tricuspid regurgitant velocityis 2.6 m/s, the estimated right ventricular systolic pressure is 27 mmHgplus right atrial pressure. The pulmonic valve is not well visualized.Trace pulmonic regurgitation is present on color flow. Masses, Effusion, Shunts There is no pericardial effusion. The inferior vena cava is dilated,respiratory size variation greater than 50%. MEASUREMENTS AND CALCULATIONS 2-D Measurements and LV Function: LVID (d) 4.7 cm Planimetered EF 74 % LVID (s) 3.2 cm LV FS% (2D) 32 % IVS (d) 1.3 cm LVOT diameter 2.6 cm LVPW (d) 1.0 cm HR 55 bpm Ao Sinus 3.7 cm LA Vol index 26 ml/m2 Ao Sinus ULN 4.1 cm RA Vol index 33 ml/m2 Asc Ao 3.2 cm RA area 22 cm Asc Ao ULN 4.1 cm RV Basal Diam 4.0 cm LA 3.7 cm RV Mid Diam 2.3 cm Diastology: Mitral Tissue Doppler E Peak 0.73 m/s e', Septum 0.12 m/s DT 288 msec Aortic Valve: Vmax 1.3 m/s SETH (V) 4.54 cm VTI 0.24 m SETH (I) 5.10 cm LVOT V max 1.1 m/s Max PG 6 mmHg LVOT VTI 0.24 m Mean PG 3 mmHg SV 124 ml Dim Index 0.99 SV index 60 ml/m CO 6.8 l/min CI 3.3 l/min/m Mitral Valve: MVA 2.6 cm MV P 1/2 84 msec Tricuspid Valve and estimated PA pressures: TR Vmax 2.6 m/s TAPSE 1.7 cm TR maxG 27 mmHg . This study was interpreted by an [facility] accredited facility. CC: [facility] (med records) [facility]. [facility] E[facility] ORD Salena joanne Result * SCAN-CARDIAC REHABILITATION (08/20/2025 8:25 AM CDT) Only the most recent of11 resultswithin the time period is included. us Scanner OTHER Final Result * TROPONIN T (HS) ONE TIME (07/29/2025 1:10 PM CDT) Only the most recent of3 resultswithin the time period is included. TROPONIN T HS 12 6-15 ng/L ng/L 07/29/2025 1:[address] [facility] Blood BLOOD SPECIMEN / Unknown Venipuncture / Unknown 07/29/2025 1:10 PM CDT 07/29/2025 1:25 PM CDT Abby Duong MD CHEMISTRY Final R esult [facility] [address] [phone] * CT CHEST PULMONARY EMBOLUS PE ABDOMEN PELVIS W (07/29/2025 11:50 AM CDT) Anatomical Region Laterality Modality CHEST, Abdomen, Pelvis Computed Tomography Abby Duong MD CT Final R esult * TROPONIN T (HS) ACUTE W/2HR REFLEX (07/29/2025 11:08 AM CDT) Only the most recent of4 resultswithin the time period is included. TROPONIN T HS 13 6-15 ng/L ng/L 07/29/2025 11:[address] [facility] Blood BLOOD SPECIMEN / Unknown IV Start / Unknown 07/29/2025 11:08 AM CDT 07/29/2025 11:[address] [facility] - 07/29/2025 11:34 AM CDT hs-cTnT (Elecsys Troponin T Gen 5) concentration (s) above the sex-specific 99th percentile (16 ng/L or greater for males or 11 ng/L or greater for females) are indicative of myocardial injury. If initial hs-cTnT <=100 ng/L at presentation, a 0h/2h ABSOLUTE (ng/L) delta change (rising or falling) of >=10 ng/L suggests a significant change, whereas a 0h/2h delta change <=3 ng/L suggests no significant change. If initial hs-cTnT >100 ng/L at presentation, a 0h/2h/ RELATIVE (percent, %) delta change of 20% is suggested to distinguish patients with acute vs. chronic myocardial injury. There are multiple etiologies that can cause hs-cTnT increases above the 99th percentile (myocardial injury) other than acute myocardial infarction. Clinical context and careful clinical evaluation are critical for diagnosis and risk-stratification. The diagnosis of acute myocardial infarction requires a rising and/or falling pattern in hs-cTnT concentrations with at least one value above the sex-specific 99th percentile PLUS at least one of the following clinical criteria: ischemic symptoms, new or presumed new significant ST-T wave changes or new LBBB, development of pathological Q waves, imaging evidence of new loss of viable myocardium or new regional wall motion abnormality, or identification of intracoronary atherothrombosis or an acute angiographic culprit on coronary angiography. In appropriate low-risk patients with a non-ischemic electrocardiogram without active chest pain with a symptom onset >3-hours without recurrence, a single initial hs-cTnT<6 ng/L identifies patient with a very low risk in emergency department patient population. us Abby Duong MD CHEMISTRY Final R esult [facility] [address] [address] * (ABNORMAL) CBC WITH AUTO DIFFERENTIAL (07/29/2025 11:08 AM CDT) Only the most recent of3 resultswithin the time period is included. [facility] WHITE BLOOD COUNT 5.2 4.5 - 11.0 thou/cu mm 07/29/2025 11:[address] [facility] RED BLOOD COUNT 3.97(L) 4.30 - 5.90 mil/cu mm 07/29/2025 11:[address] [facility] HEMOGLOBIN 11.0(L) 13.5 - 17.5 g/dL 07/29/2025 11:15 AM [facility] HEMATOCRIT 34.5(L) 37.0 - 53.0 % 07/29/2025 11:15 AM [facility] MCV 87 80 - 100 fL 07/29/2025 11:15 AM [facility] MCH 27.7 26.0 - 34.0 pg 07/29/2025 11:15 AM [facility] MCHC 31.9(L) 32.0 - 36.0 g/dL 07/29/2025 11:15 AM [facility] RDW 13.2 11.5 - 15.5 % 07/29/2025 11:15 AM [facility] PLATELET COUNT 359 140 - 440 thou/cu mm 07/29/2025 11:15 AM [facility] MPV 8.4 6.5 - 11.0 fL 07/29/2025 11:15 AM [facility] % NEUT 63.3 % 07/29/2025 11:15 AM [facility] % LYMPH 24.5 % 07/29/2025 11:15 AM [facility] % MONO 8.3 % 07/29/2025 11:15 AM [facility] % EOS 2.5 % 07/29/2025 11:15 AM [facility] % BASO 1.4 % 07/29/2025 11:15 AM [facility] ABSOLUTE NEUTROPHILS 3.3 1.7 - 7.0 thou/cu mm 07/29/2025 11:15 AM [facility] ABSOLUTE LYMPHOCYTES 1.3 0.9 - 2.9 thou/cu mm 07/29/2025 11:15 AM [facility] ABSOLUTE MONOCYTES 0.4 <0.9 thou/cu mm 07/29/2025 11:15 AM [facility] ABSOLUTE EOSINOPHILS 0.1 <0.5 thou/cu mm 07/29/2025 11:15 AM [facility] ABSOLUTE BASOPHILS 0.1 <0.3 thou/cu mm 07/29/2025 11:15 AM [facility] Blood BLOOD SPECIMEN / Unknown IV Start / Unknown 07/29/2025 11:08 AM CDT 07/29/2025 11:10 AM CDT Abby Duong MD HEMATOLOGY Final R esult Performing Organization Address [facility] Co de Phone Number [address] [phone] * (ABNORMAL) Protime - INR (07/29/2025 11:08 AM CDT) Only the most recent of9 resultswithin the time period is included. INR 1.3(H) <1.3 07/29/2025 11:[address] [facility] PROTIME 14.8(H) 10.6 - 12.4 sec 07/29/2025 11:[address] [facility] Blood BLOOD SPECIMEN / Unknown IV Start / Unknown 07/29/2025 11:08 AM CDT 07/29/2025 11:[address] [facility] - 07/29/2025 11:19 AM CDT Therapeutic Range 2.0-3.0 for most anticoagulated patients 2.5-3.5 or 4.0 for high risk patients The INR is only used for patients on stable oral anticoagulant therapy. It makes no significant contribution to the diagnosis or treatment of patients whose Protime is prolonged for other reasons. INR results are increased when heparin levels exceed 1.0 U/mL, which corresponds to an aPTT >125 seconds if the patient is on UFH. us Abyb Duong MD HEMATOLOGY Final R esult Performing Organization Address [facility] Co de Phone Number [address] [phone] * (ABNORMAL) Complete Metabolic Panel (07/29/2025 11:08 AM CDT) SODIUM 136 136 - 145 mmol/L 07/29/2025 11:[address] [facility] POTASSIUM 4.3 3.5 - 5.1 mmol/L 07/29/2025 11:34 AM [facility] CHLORIDE 100 98 - 107 mmol/L 07/29/2025 11:34 AM [facility] CO2,TOTAL 26 22 - 29 mmol/L 07/29/2025 11:34 AM [facility] ANION GAP 10 5 - 18 07/29/2025 11:34 AM [facility] GLUCOSE 90 70 - 99 mg/dL 07/29/2025 11:34 AM [facility] CALCIUM 9.2 8.8 - 10.4 mg/dL 07/29/2025 11:34 AM [facility] Comment: Reference ranges for this test were updated on 09/12/2024 to reflect our healthy population more accurately. Reference range changes are not retroactively applied to results, but previous results using the same methodology can be interpreted in the context of the new reference range. BUN 15 8 - 23 mg/dL 07/29/2025 11:34 AM [facility] CREATININE 1.07 0.70 - 1.20 mg/dL 07/29/2025 11:34 AM [facility] BUN/CREAT RATIO 14 10 - 20 11:34 AM [facility] eGFR 78(L) >90 mL/min/1.7 3m2 07/29/2025 11:34 AM [facility] Comment:As of 2022, eG FR is calculated by the CKD-EPI creatinine equation without race adjustment. eGFR can be influenced by muscle mass, exercise, and diet. The reported eGFR is an estimation only and is only applicable if the renal function is stable. ALBUMIN 3.9(L) 4.0 - 4.9 g/dL 07/29/2025 11:34 AM [facility] PROTEIN,TOTAL 6.3 6.0 - 8.0 g/dL 07/29/2025 11:34 AM [facility] BILIRUBIN,TOTAL 0.3 0.0 - 1.2 mg/dL 07/29/2025 11:34 AM [facility] ALK PHOSPHATASE 81 40 - 129 IU/L 07/29/2025 11:[address] [facility] ALT (SGPT) 24 10 - 50 IU/L 07/29/2025 11:[address] [facility] AST (SGOT) 24 10 - 50 IU/L 07/29/2025 11:[address] [facility] Blood BLOOD SPECIMEN / Unknown IV Start / Unknown 07/29/2025 11:08 AM CDT 07/29/2025 11:10 AM CDT us Abby Duong MD CHEMISTRY Final R esult [facility] [address] [address] * EKG 12 LEAD (07/29/2025 10:35 AM CDT) Only the most recent of10 resultswithin the time period is included. Interpretation Sinus bradycardia T wave abnormality, consider anterior ischemia Abnormal ECG When compared with ECG of 25-Jul-2025 16:59, Sinus rhythm has replaced Atrial flutter Vent. rate has decreased by [address] no longer depressed in Anterior leads BEYOND NOW Ventricular Rate 56 BPM BEYOND NOW Atrial Rate 56 BPM BEYOND NOW P-R Interval 168 ms BEYOND NOW QRS Duration 98 ms BEYOND NOW QT 444 ms BEYOND NOW QTc 428 ms BEYOND NOW P [place] 83 degrees BEYOND NOW R [place] 76 degrees BEYOND NOW T [place] 81 degrees BEYOND NOW 07/29/2025 10:3 5 AM CDT 07/29/2025 6:57 PM CDT us Abby Duong MD EKG ORD Final R esult [place] NOW [place], [place] * MAGNESIUM (07/25/2025 5:00 PM CDT) Only the most recent of29 resultswithin the time period is included. MAGNESIUM 2.3 1.6 - 2.4 mg/dL 07/25/2025 5:[address] [facility] Blood BLOOD SPECIMEN / Unknown Venipuncture / Unknown 07/25/2025 5:00 PM CDT 07/25/2025 5:05 PM CDT us Kwame Soni MD CHEMISTRY Final R esult [facility] [address] [address] * (ABNORMAL) BASIC METABOLIC PANEL (07/25/2025 5:00 PM CDT) Only the most recent of13 resultswithin the time period is included. [facility] SODIUM 139 136 - 145 mmol/L 07/25/2025 5:32 PM [facility] POTASSIUM 4.3 3.5 - 5.1 mmol/L 07/25/2025 5:32 PM [facility] CHLORIDE 102 98 - 107 mmol/L 07/25/2025 5:32 PM [facility] CO2,TOTAL 24 22 - 29 mmol/L 07/25/2025 5:32 PM [facility] ANION GAP 13 5 - 18 07/25/2025 5:32 PM [facility] GLUCOSE 123(H) 70 - 99 mg/dL 07/25/2025 5:32 PM [facility] CALCIUM 9.3 8.8 - 10.4 mg/dL 07/25/2025 5:32 PM [facility] Comment: Reference ranges for this test were updated on 09/12/2024 to reflect our healthy population more accurately. Reference range changes are not retroactively applied to results, but previous results using the same methodology can be interpreted in the context of the new reference range. BUN 17 8 - 23 mg/dL 07/25/2025 5:32 PM [facility] CREATININE 1.03 0.70 - 1.20 mg/dL 07/25/2025 5:32 PM [facility] BUN/CREAT RATIO 17 10 - 20 5:32 PM [facility] eGFR 82(L) >90 mL/min/1.7 3m2 07/25/2025 5:32 PM [facility] Comment:As of 2022, eG FR is calculated by the CKD-EPI creatinine equation without race adjustment. eGFR can be influenced by muscle mass, exercise, and diet. The reported eGFR is an estimation only and is only applicable if the renal function is stable. Blood BLOOD SPECIMEN / Unknown Venipuncture / Unknown 07/25/2025 5:00 PM CDT 07/25/2025 5:05 PM CDT us Kwame Soni MD CHEMISTRY Final R esult [facility] [address] [address] * SCAN-CARDIAC STRIP (07/17/2025 9:43 AM CDT) us Scanner OTHER Final Result * ICD ANALYSIS DUAL WITHOUT REPROGRAM (07/17/2025 9:34 AM CDT) Narrative Anatoly Lindsey MD - 07/17/2025 9:34 AM CDT Anatoly Lindsey MD 07/17/2025 11:46 AM ICD EVALUATION REPORT July 17, 2025 Summary: Normal ICD function. Lead trends stable. No AT/AF detections. No VT detections. AP <0.1%, DYNAMOTOR REPAIRER 2.6%. Battery Initializing. Indication for ICD: Secondary Prevention of Sudden Cardiac Primary MD: Thony Coyne MD Primary Service Vehicle Operator: [facility] cardiology Implanting MD: Dr. Lindsey DEVICE DATA Media Production Operator [employer]: Model [place] XT DF4 MRI CR [id number] Implant Date 07/16/2025 LEAD DATA Atrial Lead: Media Production Operator [employer]: Model 5076-52 cm Implant Date 07/16/2025 RV Lead: Media Production Operator [employer]: Model [id number]-62 cm Implant Date 07/16/2025 Advisory: None Tachy therapy hx: Location of evaluation: [facility] Reason for evaluation: Routine-Post Implant Day # 1 MEASUREMENTS Atrial Sensing - P wave: 4.5 mV Atrial Capture: 0.25 V @ 0.4 ms Atrial Lead Impedance: 551 ohms Ventricular Sensing - R wave: 5 mV RV Capture: 0.5 V @ 0.4 ms Ventricular Pacing Lead Impedance: Right - 475 ohms Ventricular Shock Impedance: 45 ohms Underlying rhythm: Sinus Rhythm 62 bpm with intact conduction DIAGNOSTIC DATA - since 07/16/2025 Atrial paced - <0.1%, RV paced 2.6% Atrial episodes (AF web alerts ON for >6 hours): None Associated symptoms: n/a Ventricular episodes: None Associated symptoms: n/a Histogram: appropriate Battery voltage: 3.13 V Estimated battery longevity: Initializing Last capacitor reform: n/a Charge time: n/a seconds FINAL VENTRICULAR TACHYCARDIA PARAMETERS Rate (bpm): 150 - 188 Therapy: Monitor NID: 32 Rate (bpm): >188 Therapy: iATP x 3, 40 J x 6 NID: 30/40 FINAL BRADYCARDIA PACEMAKER PARAMETERS Mode: AAI <=> DDD Lower rate: 50 bpm Upper rate: 140/130 bpm AV Delay: 150/180 ms Mode Switch: 150 bpm Rate Response: Low 3/3 Atrial - Amplitude: Adaptive 3.5 V Pulse width: 0.4 ms Sensitivity: 0.3 mV Refractory: auto 250 ms Polarity: Bipolar Right Ventricular - Amplitude: Adaptive 3.5 V Pulse width: 0.4 ms Sensitivity: 0.3 mV Polarity: Bipolar Changes made: Device temporarily reprogrammed, iterative adjustments made during interrogation/testing. No permanent changes made. Patient education post-device implant complete. Discussed incision care, signs and symptoms of infection, including redness, drainage, swelling, fever, and chills, & activity restrictions. Also discussed indication for implant and device mechanics. Education folder containing device booklet, ID card and incision care sheet was reviewed and given to patient to take home at discharge. Patient verbalized understanding the above and is agreeable with plan of care as described. Patient was given [employer] business card and encouraged to call if he has any concerns or questions in the future. Follow up: Patient instructed to follow up with Thony Coyne MD in 1 week for incisional evaluation and Silverlon dressing removal. A 3 month [place] clinic appointment has been provided for patient in October. A relay monitor has been paired with patient's device Routine follow up: every 3-4 month remote with annual in October in [place] Lisa Fuentes RN [facility] Pacemaker/ICD Clinic [phone] Anatoly Lindsey MD CARDIAC SERVICES ORD Final Result * XR Chest PA and Lateral (07/17/2025 6:17 AM CDT) Anatomical Region Laterality Modality CHEST, THORAX, Lung, HEART Digit al Radiography 07/17/2025 10:0 9 AM CDT Impressions 07/17/2025 10:09 AM CDT 1. Interval placement of AICD, as above. No complication evident. 2. Posterior left lower lobe base atelectasis and/or pneumonia. 3. Small pleural effusions bilaterally. Dictated by Isidro Al MD @ Jul 17 2025 10:09AM (Electronically Signed) [email or web address] Narrative 07/17/2025 10:09 AM CDT For Patients: As a result of the Cures Act, medical imaging exams and procedure reports are released immediately into your electronic medical record. You may view this report before your referring provider. If you have questions, please contact your health care provider. INDICATION: Post AICD placement TECHNIQUE: PA and lateral COMPARISON: 07/16/2025 FINDINGS: Interval placement of AICD with right atrial lead in the region of the appendage and the right ventricular shock coil in the region of the apex. No pneumothorax. Heart size and pulmonary vasculature within normal limits. Posterior left lower lobe base atelectasis and/or infiltrate well as small pleural effusions bilaterally. Sternal wires. Calcified granuloma in the upper right lung. No significant bony abnormality. Procedure Note Isidro Al MD - 07/17/2025 For Patients: As a result of the Cures Act, medical imagingexams and procedure reports are released immediately into your electronicmedical record. You may view this report before your referring provider.If you have questions, please contact your health care provider. INDICATION: Post AICD placement TECHNIQUE: PA and lateral COMPARISON: 07/16/2025 FINDINGS: Interval placement of AICD with right atrial lead in the region of theappendage and the right ventricular shock coil in the region of the apex.No pneumothorax. Heart size and pulmonary vasculature within normallimits. Posterior left lower lobe base atelectasis and/or infiltrate wellas small pleural effusions bilaterally. Sternal wires. Calcified granulomain the upper right lung. No significant bony abnormality. IMPRESSION: 1. Interval placement of AICD, as above. No complication evident. 2. Posterior left lower lobe base atelectasis and/or pneumonia. 3. Small pleural effusions bilaterally. Dictated by Isidro Al MD @ Jul 17 2025 10:09AM (Electronically Signed) [email or web address] Anatoly Lindsey MD GENERAL IMAGING Final Resu lt * PLATELET COUNT (07/17/2025 6:17 AM CDT) Only the most recent of6 resultswithin the time period is included. PLATELET COUNT 312 140 - 440 thou/cu mm 07/17/2025 7:14 AM CDT [facility] MPV 9.1 6.5 - 11.0 fL 07/17/2025 7:14 AM CDT [facility] Blood BLOOD SPECIMEN / Unknown Butterfly / Unknown 07/17/2025 6:17 AM CDT 07/17/2025 6:51 AM CDT Colin Etienne MD HEMATOLOGY Final Result [facility] [address] [place] [address], * (ABNORMAL) HEMOGLOBIN (07/17/2025 6:17 AM CDT) Only the most recent of6 resultswithin the time period is included. HEMOGLOBIN 10.9(L) 13.5 - 17.5 g/dL 07/17/2025 7:14 AM CDT [facility] MCV 88 80 - 100 fL 07/17/2025 7:14 AM CDT [facility] Blood BLOOD SPECIMEN / Unknown Butterfly / Unknown 07/17/2025 6:17 AM CDT 07/17/2025 6:51 AM CDT Radha SESAY HEMATOLOGY Final Result [facility] [address] [address], [place] * POTASSIUM (07/17/2025 6:17 AM CDT) Only the most recent of11 resultswithin the time period is included. POTASSIUM 4.6 3.5 - 5.1 mmol/L 07/17/2025 7:25 AM CDT [facility] Blood BLOOD SPECIMEN / Unknown Venipuncture / Unknown 07/17/2025 6:17 AM CDT 07/17/2025 6:51 AM CDT us Colin Etienne MD CHEMISTRY Final Result Performing Organization Address [facility] Phone Number [facility] [address] [place] [address], [place] * (ABNORMAL) CREATININE (07/17/2025 6:17 AM CDT) Only the most recent of4 resultswithin the time period is included. eGFR 80(L) >90 mL/min/1.7 3m2 07/17/2025 7:25 AM CDT [facility] Comment:As of 2022, eG FR is calculated by the CKD-EPI creatinine equation without race adjustment. eGFR can be influenced by muscle mass, exercise, and diet. The reported eGFR is an estimation only and is only applicable if the renal function is stable. CREATININE 1.05 0.70 - 1.20 mg/dL 07/17/2025 7:25 AM CDT [facility] Blood BLOOD SPECIMEN / Unknown Venipuncture / Unknown 07/17/2025 6:17 AM CDT 07/17/2025 6:51 AM CDT us Radha SESAY CHEMISTRY Final Result Performing Organization Address [facility] Co de Phone Number [facility] [address] [place] [address], [place] * SCAN-CARDIAC STRIP (07/17/2025 1:25 AM CDT) us Scanner OTHER Final Result * SCAN-CARDIAC STRIP (07/16/2025 5:40 PM CDT) us Scanner OTHER Final Result * EP ICD (07/16/2025 1:28 PM CDT) Anatomical Region Laterality Modality Other 07/16/2025 1:28 PM CDT Narrative Transcriptions Anatoly Lindsey MD - 07/16/2025 2:18 PM CDT [facility] Electrophysiology Implant Report Name: CHAPO AMADOR Event Date: 07/16/2025 Excell[employer] ID #: [id number] Date: 1960 Gender: Male Age: 64 [facility] #: [id number] Procedure Performed By: ANATOLY LINDSEY [facility] Referring Physician: Implant Procedure Type Dual Chamber ICD Implant Summary / Conclusions Summary: Chapo Amador is a 64 y.o. man with a past medical history of CAPRICE andceliac disease who presented with abrupt syncope in the setting of what ismost consistent with an [id number] cardiac arrest requiring CPR priorto ROSC. He then was found to have severe multivessel coronary arterydisease and underwent four-vessel bypass on 07/10/2025 qiwdrhflbs-[id number] arrest felt not to be clearly ischemia related. LVEF ispreserved. Postoperative course has been further complicated by NSVT aswell as sinus node dysfunction with bradycardia limiting up titration ofbeta-fartun. S/p left sided dual chamber 07/16/2025. Plan: - Return to inpatient service for further cares - Bedrest for 1 hour, or until back to baseline mental status - Please keep pre-pectoral pressure dressing in place until tomorrowmorning - Please no IV heparin products after device implant (for the next 48-72hours) - Post-procedure CXR and device check have been ordered. Patient toremain NPO after midnight until the completion of these tests - OK to uptitrate beta fartun as indicated - Routine post implant wound cares and follow up including wound checkwith PCP office in approximately 1 week and device clinic follow up in 3months - Routine f/u with general cardiology in 3-4 months Pre-Operative Diagnosis ? Cardiac arrest ? Coronary artery disease ? NSVT ? Sinus node dysfunction Post-Operative Diagnosis ? Same as Pre-operative diagnosis Indications ? Same as Pre-operative diagnosis Consent & [place] Protocol [place] protocol was followed. TIME OUT conducted just prior tostarting procedure confirmed patient identity, site/side, procedure,patient position, and availability of correct equipment and implants (ifapplicable). The risks, benefits, and alternatives of the procedure were discussed withthe patient and written informed consent was obtained. Procedure Description PROCEDURES PERFORMED: 1. Dual Chamber cardioverter-defibrillator implantation. DESCRIPTION OF PROCEDURE: Following informed consent, the patient was brought to the procedure roomin stable condition. The patient was connected to noninvasive bloodpressure monitoring and pulse oximetry. After informed consent wasreaffirmed, the procedure was performed under monitored anesthesia care(MAC), see documentation from anesthesia for additional details. After thepatient was prepped and draped in the usual sterile fashion, 2% lidocainewas given for local anesthesia. Once adequate anesthesia was achieved, aleft infraclavicular incision yielded access for creation of a prepectoralpocket.Dissection was carried out using electrocautery down to thepectoralis fascia and a pocket was formed to receive thepacemaker/defibrillator pulse generator. Two venous accesses were obtained with a medial extrathoracic leftsubclavian vein (first rib) fluoroscopic approach using themicropuncture system. A left axillary/subclavian venogram was performedwith injection of 10 cc of contrast in a left arm peripheral IV. A 9 Fr splittable sheath was placed over a guide wire. Through the 9 Frsheath, the single coil right ventricular ( RV) pace/ sense/ ICD lead wasadvanced into the RV outflow tract and then withdrawn and advanced intothe RV apical septum. It was screwed into place using its active fixationmechanism. It demonstrated excellent sensing and pacing thresholds. PSAdata is provided below. Pacing at maximal output did not reveal anyevidence of diaphragmatic or chest wall stimulation. The lead was securedto the pectoralis muscle using 0- ethibond sutures and the provided tiedown sleeve after adjusting to ensure adequate slack. I then placed a 7 Fr splittable sheath over the Second guidewire andthrough this sheath, the atrial lead was then advanced to the positionunder fluoroscopic guidance. It was screwed into the right atrialappendage using its active fixation mechanism. It demonstrated excellentsensing and an excellent pacing threshold. PSA data is provided below.Pacing at 10 V with 2ms pulse width did not reveal any evidence of chestwall or diaphragmatic stimulation.The lead was secured to the pectoralismuscle using 0- ethibond sutures and the provided tie down sleeve afteradjusting to ensure adequate slack. The pocket was copiously irrigated with antibiotic solution. The leadswere connected to the ICD pulse generator and secured with the providedtorque wrench. After ensuring adequate hemostasis, the pocket was againcopiously irrigated with antibiotic solution.The generator was carefullyplaced in the pocket with the leads behind it and the generator wassecured to the underlying muscle with 0-Ethibond. The pocket was closedwith two a deep layers of 2-0 Vicryl. The superficial layer of theincision was closed with a 4-0 layer of Vicryl and steri strips wasapplied over the incision. At the end of the procedure, surgical countswere correct. The patient tolerated the procedure well. There were nocomplications. The patient was transferred to a telemetry monitored bed instable condition. Status post successful dual chamber Medtronic ICD implantation [facility] prevention of sudden cardiac . Normal device functionobserved at the end of the case. Procedure completed without incident. Implantable Device Specifications Pulse Generator Detail Implanted Status Pocket Location Media Production Operator Model Serial Number 07/16/2025 Implanted Left Pectoral [employer] [place] XT DF4 MRI [id number] Lead Detail Implanted Status Chamber Location Media Production Operator Model Serial Number 07/16/2025 Implanted Right Ventricle [place] [employer] Sprint QuattroSecur [id number]-[id number] 07/16/2025 Implanted Right Atrium Right Appendage [employer] CapSureFixNovus [id number] Measurement Conservation Scientist P/R Wave (mV) Threshold (V) Pulse Width (msec) Resistance (ohms) High Output Stim Result RA 2.1 0.75 0.4 819 No Stimulation @ 10 V RV 4.4 1.25 0.4 551 No Stimulation @ 10 V Device Settings Mode Lower Rate (bpm) Upper Rate (bpm) AAI-DDD 50 140 RAVIN Delay: 150 msec PAV Delay: 180 msec Lead Amplitude (V) Pulse Width (msec) Sensitivity (mV) Configuration Atrial 3.5 0.4 0.3 Bipolar RV 3.5 0.4 0.3 Bipolar Features Magnet Use: Enabled Wireless Telemetry: Active Feature Status Detail Mode Switch On 150 ICD Therapies Zone Detect Rate Therapy 1 Therapy 2 Therapy 3 Therapy 4 Therapy 5 Therapy6 Therapy 7 Therapy 8 VF 188 Defib (Std Config) 40 Joules Same as previous Same as previous Sameas previous Same as previous Same as previous Monitor 150 Procedure(s) Performed ? Insertion -Replacement of Single or Dual Chamber ICD Procedure Detail Estimated Blood Loss: < 50 ml Specimen Collected: None Level of Sedation Achieved: See Anesthesia Note Total Fluoro Time: 2.6 BORING MACHINE OPERATOR VERTICAL Total Fluoro Dose: 4 mGy Contrast: Visipaque, 10 ml Staff Name Role Anatoly Lindsey Implanting Felisa Mariee RN Nurse Valdemar Chaudhari CVT Racing Car Driver Leon Snider CVT Scrub Lillie Altamirano EPT Racing Car Driver Medications Ordered and Administered Start Time Stop Time Medication Dose Units Route Ordered By Given By 13:28 1% Lidocaine Hydrochloride 20 mL None MD Anatoly Corley MD 13:29 0.25% Bupivicaine 20 mL None MD Anatoly Corley MD 14:00 Ancef Irrigation 1 g None MD Anatoly Corley MD The anesthesia service monitored the patient?s conscious sedation duringthe procedure. The medications listed above were verbally ordered by me and read back tome as documented above. Refer to the hemodynamic procedure log report for additional casedetails. electronically signed on 07/16/2025 2:18:36 PM with status of Final Anatoly Lindsey MD Implanting Service Vehicle Operator [facility] [address] [place] [address] (p) [phone](f) Anatoly Lindsey MD CV IMAGING Edited Res ult - Final * SCAN-CARDIAC STRIP (07/16/2025 9:50 AM CDT) us Scanner OTHER Final Result * XR CHEST 1 VIEW PORTABLE (07/16/2025 7:55 AM CDT) Only the most recent of6 resultswithin the time period is included. Anatomical Region Laterality Modality HEART, THORAX, CHEST Digital Rad iography 07/16/2025 8:06 AM CDT Narrative 07/16/2025 8:06 AM CDT For Patients: As a result of the Cures Act, medical imaging exams and procedure reports are released immediately into your electronic medical record. You may view this report before your referring provider. If you have questions, please contact your health care provider. INDICATION: Pleural effusion TECHNIQUE: Chest 1 views. COMPARISON: X-ray chest July 15, 2025 FINDINGS/IMPRESSION: Small bilateral pleural effusion, stable in comparison to previous x-ray. No pneumothorax. Cardiac size is within normal limit without pulmonary edema. Median sternotomy. Dictated by Desmond Torre MD @ Jul 16 2025 8:06AM (Electronically Signed) [email or web address] Procedure Note Desmond Torre MD - 07/16/2025 For Patients: As a result of the Cures Act, medical imagingexams and procedure reports are released immediately into your electronicmedical record. You may view this report before your referring provider.If you have questions, please contact your health care provider. INDICATION: Pleural effusion TECHNIQUE: Chest 1 views. COMPARISON: X-ray chest July 15, 2025 FINDINGS/IMPRESSION: Small bilateral pleural effusion, stable in comparison to previous x-ray.No pneumothorax. Cardiac size is within normal limit without pulmonary edema. Mediansternotomy. Dictated by Desmond Torre MD @ Jul 16 2025 8:06AM (Electronically Signed) [email or web address] us Apryl SESAY GENERAL IMAGING Final Res ult * (ABNORMAL) CBC W PLT NO DIFF (07/16/2025 6:26 AM CDT) Only the most recent of5 resultswithin the time period is included. [facility] WHITE BLOOD COUNT 7.8 4.5 - 11.0 thou/cu mm 07/16/2025 6:44 AM CDT [facility] RED BLOOD COUNT 4.18(L) 4.30 - 5.90 mil/cu mm 07/16/2025 6:44 AM CDT [facility] HEMOGLOBIN 11.3(L) 13.5 - 17.5 g/dL 07/16/2025 6:44 AM CDT [facility] HEMATOCRIT 36.2(L) 37.0 - 53.0 % 07/16/2025 6:44 AM CDT [facility] MCV 87 80 - 100 fL 07/16/2025 6:44 AM CDT [facility] MCH 27.0 26.0 - 34.0 pg 07/16/2025 6:44 AM T [facility] MCHC 31.2(L) 32.0 - 36.0 g/dL 07/16/2025 6:44 AM CDT [facility] RDW 13.7 11.5 - 15.5 % 07/16/2025 6:44 AM CDT [facility] PLATELET COUNT 341 140 - 440 thou/cu mm 07/16/2025 6:44 AM CDT [facility] MPV 9.2 6.5 - 11.0 fL 07/16/2025 6:44 AM CDT [facility] NRBC 0.0 % 07/16/2025 6:44 AM CDT [facility] ABS NRBC 0.0 thou /cu mm 07/16/2025 6:44 AM T [facility] Blood BLOOD SPECIMEN / Unknown Venipuncture / Unknown 07/16/2025 6:26 AM CDT 07/16/2025 6:39 AM CDT us Apryl SESAY HEMATOLOGY Final Res ult [facility] [address] [address], [place] * SCAN-CARDIAC STRIP (07/15/2025 7:46 AM CDT) us Scanner OTHER Final Result * SCAN-CARDIAC STRIP (07/14/2025 9:00 PM CDT) us Scanner OTHER Final Result * SCAN-CARDIAC STRIP (07/14/2025 10:58 AM CDT) us Scanner OTHER Final Result * SCAN-CARDIAC STRIP (07/14/2025 3:26 AM CDT) us Scanner OTHER Final Result * (ABNORMAL) GLUCOSE METER (07/13/2025 11:13 AM CDT) Only the most recent of16 resultswithin the time period is included. GLUCOSE METER 115(H) 65 - 100 mg/dL 07/13/2025 11:14 AM CDT [facility] Blood BLOOD SPECIMEN / Unknown 07/13/2025 11:13 AM CDT 07/13/2025 11:14 AM CDT us Colin Etienne MD CHEMISTRY Final Result [facility] [address] [address], * SCAN-CARDIAC STRIP (07/13/2025 10:12 AM CDT) us Scanner OTHER Final Result * SCAN-CARDIAC STRIP (07/13/2025 5:35 AM CDT) us Scanner OTHER Final Result * SCAN-CARDIAC STRIP (07/13/2025 3:13 AM CDT) us Scanner OTHER Final Result * SCAN-CARDIAC STRIP (07/13/2025 3:13 AM CDT) us Scanner OTHER Final Result * SCAN-CARDIAC STRIP (07/13/2025 3:12 AM CDT) us Scanner OTHER Final Result * SCAN-CARDIAC STRIP (07/13/2025 3:07 AM CDT) us Scanner OTHER Final Result * SCAN-CARDIAC STRIP (07/12/2025 6:26 PM CDT) us Scanner OTHER Final Result * SCAN-CARDIAC STRIP (07/12/2025 3:03 PM CDT) us Scanner OTHER Final Result * (ABNORMAL) CALCIUM IONIZED HOSPITAL DRAW ONLY (07/12/2025 2:39 PM CDT) Only the most recent of4 resultswithin the time period is included. CALCIUM,IONIZE D 1.14(L) 1.15 - 1.27 mmol/L 07/12/2025 3:02 PM CDT [facility] Blood BLOOD SPECIMEN / Unknown Venipuncture / Unknown 07/12/2025 2:39 PM CDT 07/12/2025 2:47 PM CDT us Dalila Patel MD CHEMISTRY Final Resu lt [facility] [address] [place] [address], [place] * SCAN-CARDIAC STRIP (07/12/2025 9:56 AM CDT) us Scanner OTHER Final Result * (ABNORMAL) O2 SATURATION,MEASURED (07/12/2025 3:50 AM CDT) Only the most recent of4 resultswithin the time period is included. O2 SATURATION,TUCKER SURED 61 % 07/12/2025 4:06 AM CDT [facility] HEMOGLOBIN,BLO OD GAS 9.1(L) 13.5 - 17.5 g/dL 07/12/2025 4:06 AM CDT [facility] SOURCE, O2M Venous 07/12/2025 4:06 AM CDT [facility] Blood BLOOD SPECIMEN / Unknown Non-Lab Venipuncture / Unknown 07/12/2025 3:50 AM CDT 07/12/2025 4:02 AM CDT Narrative [facility] - 07/12/2025 4:06 AM CDT Reference Range for: Arterial Source (94-98) Non-Arterial Source (70-75) Keshia SESAY CHEMISTRY Final Result [facility] [address] [place] [address], [place] * ECHO LATONYA INTRAOPERATIVE (07/11/2025 1:11 PM CDT) Anatomical Region Laterality Modality Ultrasound 07/10/2025 Narrative 07/10/2025 1:11 PM CDT Intra Op LATONYA results are in the Anesthesiologist Procedure note by Jayden Looney MD Anesthesiology under the notes/trans tab./mark Liss SESAY ECHO ORD Final Res ult * LACTATE ARTERIAL (07/11/2025 8:10 AM CDT) Only the most recent of2 resultswithin the time period is included. LACTATE,ARTERI AL 1.3 0.5 - 1.6 mmol/L 07/11/2025 8:54 AM CDT [facility] Blood BLOOD SPECIMEN / Unknown Non-Lab Venipuncture / Unknown 07/11/2025 8:10 AM CDT 07/11/2025 8:18 AM CDT Keshia SESAY CHEMISTRY Final Result [facility] [address] [place] [address], [place] * (ABNORMAL) Hepatic function panel FOR ADD ON (07/11/2025 6:53 AM CDT) Only the most recent of4 resultswithin the time period is included. ALBUMIN 3.5(L) 4.0 - 4.9 g/dL 07/11/2025 8:28 AM CDT [facility] PROTEIN,TOTAL 5.0(L) 6.0 - 8.0 g/dL 07/11/2025 8:28 AM CDT [facility] BILIRUBIN,TOTAL 0.9 0.0 - 1.2 mg/dL 07/11/2025 8:28 AM CDT [facility] BILIRUBIN,DIRECT 0.4(H) 0.0 - 0.2 mg/dL 07/11/2025 8:28 AM CDT [facility] BILIRUBIN,INDIRE CT 0.5 0.2 - 0.8 mg/dL 07/11/2025 8:28 AM CDT [facility] ALK PHOSPHATASE 46 40 - 129 IU/L 07/11/2025 8:28 AM CDT [facility] ALT (SGPT) 18 10 - 50 IU/L 07/11/2025 8:28 AM CDT [facility] AST (SGOT) 29 10 - 50 IU/L 07/11/2025 8:28 AM CDT [facility] Blood BLOOD SPECIMEN / Unknown Non-Lab Venipuncture / Unknown 07/11/2025 6:53 AM CDT 07/11/2025 7:00 AM CDT Keshia SESAY CHEMISTRY Final Result [facility] [address] [address] [place] [address], [place] * (ABNORMAL) CARDIAC THROMBOELASTOGRAPHY (07/11/2025 3:52 AM CDT) Only the most recent of3 resultswithin the time period is included. VIC REASON Diffuse Cardiac Bleeding 07/11/2025 5:22 AM CDT [facility] INTEM CT 146 139 - 205 s 07/11/2025 5:22 AM CDT [facility] INTEM A5 40 36 - 54 mm 07/11/2025 5:22 AM CDT [facility] INTEM A10 49 46 - 63 mm 07/11/2025 5:22 AM CDT [facility] INTEM A20 53 53 - 68 mm 07/11/2025 5:22 AM CDT [facility] INTEM MCF 54(L) 55 - 70 mm 07/11/2025 5:22 AM CDT [facility] INTEM ML 5 0 - 7 % 07/11/2025 5:22 AM CDT [facility] EXTEM CT 57 51 - 73 s 07/11/2025 5:22 AM CDT [facility] EXTEM A5 43 33 - 52 mm 07/11/2025 5:22 AM CDT [facility] EXTEM A10 53 45 - 62 mm 07/11/2025 5:22 AM CDT [facility] EXTEM A20 58 54 - 69 mm 07/11/2025 5:22 AM CDT [facility] EXTEM MCF 59 57 - 72 mm 07/11/2025 5:22 AM CDT [facility] EXTEM ML 6 0 - 6 % 07/11/2025 5:22 AM CDT [facility] EXTEM LI60 95 94 - 100 % 07/11/2025 5:22 AM CDT [facility] FIBTEM A5 10 5 - 16 mm 07/11/2025 5:22 AM CDT [facility] FIBTEM A10 12 6 - 17 mm 07/11/2025 5:22 AM CDT [facility] FIBTEM A20 13 6 - 18 mm 07/11/2025 5:22 AM CDT [facility] FIBTEM MCF 13 6 - 19 mm 07/11/2025 5:22 AM CDT [facility] HEPTEM CT 152 141 - 215 s 07/11/2025 5:22 AM CDT [facility] HEPTEM A5 40 33 - 51 mm 07/11/2025 5:22 AM CDT [facility] HEPTEM A10 49 44 - 61 mm 07/11/2025 5:22 AM CDT [facility] HEPTEM A20 54 52 - 67 mm 07/11/2025 5:22 AM CDT [facility] HEPTEM MCF 55 54 - 69 mm 07/11/2025 5:22 AM CDT [facility] Blood BLOOD SPECIMEN / Unknown Non-Lab Venipuncture / Unknown 07/11/2025 3:52 AM CDT 07/11/2025 4:08 AM CDT us Tung JUAREZ HEMATOLOGY Final Result [facility] [address] [place] [address], * (ABNORMAL) COMPREHENSIVE BLOOD GAS ARTERIAL (07/10/2025 8:57 PM CDT) PH, ARTERIAL 7.31(L) 7.35 - 7.45 07/10/2025 8:57 PM CDT [facility] PCO2, ARTERIAL 50(H) 35 - 48 mmHg 07/10/2025 8:57 PM CDT [facility] PO2, ARTERIAL 130(H) 83 - 108 mmHg 07/10/2025 8:57 PM CDT [facility] HCO3, ARTERIAL 25 21 - 28 mmol/L 07/10/2025 8:57 PM CDT [facility] BASE EXCESS, ARTERIAL -1.7 -2.0 - 3.0 07/10/2025 8:57 PM CDT [facility] O2 SATURATION, ARTERIAL 99(H) 94 - 98 % 07/10/2025 8:57 PM CDT [facility] INSPIRED O2 40 07/10/2025 8:57 PM CDT [facility] Comment:Unit of Measure: Lit ers (L) if <=20; Percent (%) if >20 PATIENT TEMPERATURE 37.0 Degrees C 07/10/2025 8:57 PM CDT [facility] COLLECTION SITE ARTERIAL LINE 07/10/2025 8:57 PM CDT [facility] Blood BLOOD SPECIMEN / Unknown 07/10/2025 8:57 PM CDT 07/10/2025 8:57 PM CDT us Cara Camacho MD CHEMISTRY Final R esult Performing Organization Address City/[facility]/ZIP Co de Phone Number [facility] [address] [place] [address], [place] * (ABNORMAL) Thrombin Time - Immediate Postop (07/10/2025 5:40 PM CDT) THROMBIN TIME 18(H) <16 sec 07/10/2025 6:14 PM CDT [facility] Blood BLOOD SPECIMEN / Unknown Non-Lab Venipuncture / Unknown 07/10/2025 5:40 PM CDT 07/10/2025 5:48 PM CDT us Colin Etienne MD HEMATOLOGY Final Result Performing Organization Address City/[facility]/ZIP Co de Phone Number [facility] [address] [place] [address], [place] * (ABNORMAL) Arterial Blood Gas (07/10/2025 5:40 PM CDT) PH, ARTERIAL 7.33(L) 7.35 - 7.45 07/10/2025 6:02 PM CDT [facility] PCO2, ARTERIAL 44 35 - 48 mmHg 07/10/2025 6:02 PM CDT [facility] TRA [facility] PO2, ARTERIAL 165(H) 83 - 108 mmHg 07/10/2025 6:02 PM CDT [facility] HCO3, ARTERIAL 23 21 - 28 mmol/L 07/10/2025 6:02 PM CDT [facility] BASE EXCESS, ARTERIAL -2.8(L) -2.0 - 3.0 07/10/2025 6:02 PM CDT [facility] O2 SATURATION, ARTERIAL 100(H) 94 - 98 % 07/10/2025 6:02 PM T [facility] INSPIRED O2 07/10/2025 6:02 PM CDT [facility] Comment:Unit of Measure: Lit ers (L) if <=20; Percent (%) if >20 PATIENT TEMPERATURE 37.0 Degrees C 07/10/2025 6:02 PM T [facility] Blood ARTERIAL BLOOD SPECIMEN / Unknown Non-Lab Venipuncture / Unknown 07/10/2025 5:40 PM CDT 07/10/2025 5:48 PM CDT us Colin Etienne MD CHEMISTRY Final Result [facility] [address] [place] [address], * APTT - Immediate Postop (07/10/2025 5:40 PM CDT) Only the most recent of2 resultswithin the time period is included. APTT 31 25 - 36 sec 07/10/2025 6:14 PM CDT [facility] Blood BLOOD SPECIMEN / Unknown Non-Lab Venipuncture / Unknown 07/10/2025 5:40 PM CDT 07/10/2025 5:48 PM CDT Narrative [facility] - 07/10/2025 6:14 PM CDT Therapeutic Range: 59-89 seconds Colin Etienne MD HEMATOLOGY Final Result Performing Organization Address City/[facility]/ZIP Co de Phone Number [facility] [address] [place] [address], * Fibrinogen, Quantitative - Immediate Postop (07/10/2025 5:40 PM CDT) Only the most recent of2 resultswithin the time period is included. FIBRINOGEN,KORI NTITATIVE 213 193 -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 Organization Address City/[facility]/ZIP Co de Phone Number [facility] [address] [place] [address], [place] * SCAN-CARDIAC STRIP (06/30/2025 10:42 PM CDT) us Scanner OTHER Final Result * ECHO TTE COMPLETE WO CONTRAST (06/30/2025 5:33 PM CDT) AORTIC VALVE MEAN PG 3 mmHg EJECTION FRACTION 69 % PEAK TR VELOCITY 2.6 m/s LVEDD 4.7 cm EJECTION FRACTION 65 - 70% Anatomical Region Laterality Modality Ultrasound 06/30/2025 3:24 PM CDT Narrative 06/30/2025 5:47 PM CDT ECHOCARDIOGRAM CHAPO AMADOR : 1960 64 years Study Date: 06/30/2025 3:24:19 PM Gender: M BP: 159/75 mmHg Height: 183.00 cm BSA: 2.11 m Weight: 89.00 kg Tech: Referring MD: EDEN LAMA Site: [facility] Reading Location: [facility] Patient Location: Inpatient. Procedure: 2D, Color Doppler and Spectral Doppler. Indication for study: Cardiac arrest Cardiac Rhythm: Regular.Study quality: Good. Final Impressions: 1. Normal LV size, normal wall thickness, EF of 65 - 70%. 2. Normal RV size and systolic function. 3. No valve disease. 4. The inferior vena cava is dilated, respiratory size variation greater than 50%. Comparison There are no prior studies on this patient for comparison purposes. Chamber Sizes and Function Normal left ventricular size, normal wall thickness, normal global systolic function with an estimated EF of 65 - 70%. No resting regional wall motion abnormality visualized. Left atrial size is normal. Left atrial pressure is normal. Right ventricular cavity size is normal, global systolic RV function is normal. RV wall thickness is normal. The right atrium is normal. Right atrial volume index is 32 ml/m . Right atrial area is 23 cm . The pulmonary artery is of normal size and origin. The sinus of Valsalva is normal sized. The ascending aorta is normal sized. Valves, RV Pressures and Diastolic Function The aortic valve is normal in structure and trileaflet, no stenosis and no regurgitation. The mitral valve is normal in structure, mild mitral regurgitation. Normal diastolic function. The tricuspid valve is normal in structure, mild tricuspid regurgitation. The tricuspid regurgitant velocity is 2.6 m/s, the estimated right ventricular systolic pressure is 27 mmHg plus right atrial pressure. The pulmonic valve is normal. No pulmonary regurgitation. Masses, Effusion, Shunts There is no pericardial effusion. The inferior vena cava is dilated, respiratory size variation greater than 50%. No left to right shunting was detected by limited color flow Doppler interrogation of the interatrial septum. MEASUREMENTS AND CALCULATIONS 2-D Measurements and LV Function: LVID (d) 4.7 cm LV FS% (2D) 34 % LVID (s) 3.1 cm LVOT diameter 2.4 cm IVS (d) 1.0 cm HR 64 bpm LVPW (d) 0.7 cm LA Vol index 36 ml/m2 Ao Sinus 3.9 cm RA Vol index 32 ml/m2 Ao Sinus ULN 4.2 cm * RA area 23 cm Asc Ao 3.3 cm RV Basal Diam 4.0 cm Asc Ao ULN 4.2 cm * RV Mid Diam 3.0 cm * Input BSA outside of range, reported values correspond to BSA = 2.1 Diastology: Mitral Tissue Doppler E Peak 0.7 m/s e', Septum 0.11 m/s A Peak 0.4 m/s e', Lateral 0.14 m/s E/A 1.7 E/e' Average 5.54 DT 211 msec Aortic Valve: Vmax 1.3 m/s SETH (V) 3.84 cm VTI 0.24 m SETH (I) 3.95 cm LVOT V max 1.0 m/s Max PG 6 mmHg LVOT VTI 0.20 m Mean PG 3 mmHg SV 93 ml Dim Index 0.86 SV index 44 ml/m CO 5.9 l/min CI 2.8 l/min/m Mitral Valve: MVA 3.6 cm MV P 1/2 61 msec Tricuspid Valve and estimated PA pressures: TR Vmax 2.6 m/s TAPSE 3.0 cm TR maxG 27 mmHg Pulmonic Valve: PV Vmax 1.0 m/s . This study was interpreted by an [facility] accredited facility. Final Procedure Note Baljeet Bond MD - 06/30/2025 ECHOCARDIOGRAM CHAPO AMADOR : 1960 64 years Study Date: 06/30/2025 3:24:19 PM Gender: M BP: 159/75 mmHg Height: 183.00 cm BSA: 2.11 m Weight: 89.00 kg Tech: Referring MD: EDEN LAMA Site: [facility] Reading Location: [facility] Patient Location: Inpatient. Procedure: 2D, Color Doppler and Spectral Doppler. Indication for study: Cardiac arrest Cardiac Rhythm: Regular.Study quality: Good. Final Impressions: 1. Normal LV size, normal wall thickness, EF of 65 - 70%. 2. Normal RV size and systolic function. 3. No valve disease. 4. The inferior vena cava is dilated, respiratory size variation greaterthan 50%. Comparison There are no prior studies on this patient for comparison purposes. Chamber Sizes and Function Normal left ventricular size, normal wall thickness, normal globalsystolic function with an estimated EF of 65 - 70%. No resting regionalwall motion abnormality visualized. Left atrial size is normal. Leftatrial pressure is normal. Right ventricular cavity size is normal, globalsystolic RV function is normal. RV wall thickness is normal. The rightatrium is normal. Right atrial volume index is 32 ml/m . Right atrialarea is 23 cm . The pulmonary artery is of normal size and origin. Thesinus of Valsalva is normal sized. The ascending aorta is normal sized. Valves, RV Pressures and Diastolic Function The aortic valve is normal in structure and trileaflet, no stenosis and noregurgitation. The mitral valve is normal in structure, mild mitralregurgitation. Normal diastolic function. The tricuspid valve is normal instructure, mild tricuspid regurgitation. The tricuspid regurgitantvelocity is 2.6 m/s, the estimated right ventricular systolic pressure is27 mmHg plus right atrial pressure. The pulmonic valve is normal. Nopulmonary regurgitation. Masses, Effusion, Shunts There is no pericardial effusion. The inferior vena cava is dilated,respiratory size variation greater than 50%. No left to right shunting wasdetected by limited color flow Doppler interrogation of the interatrialseptum. MEASUREMENTS AND CALCULATIONS 2-D Measurements and LV Function: LVID (d) 4.7 cm LV FS% (2D) 34% LVID (s) 3.1 cm LVOT diameter2.4 cm IVS (d) 1.0 cm HR 64bpm LVPW (d) 0.7 cm LA Vol index 36ml/m2 Ao Sinus 3.9 cm RA Vol index 32ml/m2 Ao Sinus ULN 4.2 cm * RA area 23cm Asc Ao 3.3 cm RV Basal Diam4.0 cm Asc Ao ULN 4.2 cm * RV Mid Diam3.0 cm * Input BSA outside of range, reported values correspond to BSA = 2.1 Diastology: Mitral Tissue Doppler E Peak 0.7 m/s e', Septum 0.11 m/s A Peak 0.4 m/s e', Lateral 0.14 m/s E/A 1.7 E/e' Average 5.54 DT 211 msec Aortic Valve: Vmax 1.3 m/s SETH (V) 3.84 cm VTI 0.24 m SETH (I) 3.95 cm LVOT V max 1.0 m/s Max PG 6 mmHg LVOT VTI 0.20 m Mean PG 3 mmHg SV 93 ml Dim Index 0.86 SV index 44 ml/m CO 5.9 l/min CI 2.8 l/min/m Mitral Valve: MVA 3.6 cm MV P 1/2 61 msec Tricuspid Valve and estimated PA pressures: TR Vmax 2.6 m/s TAPSE 3.0 cm TR maxG 27 mmHg Pulmonic Valve: PV Vmax 1.0 m/s . This study was interpreted by an [facility] accredited facility. Final us [facility] ECHO ORD Final Result * EXTRA TUBE GOLD/SST (06/30/2025 4:04 PM CDT) Blood BLOOD SPECIMEN / Unknown Non-Lab Venipuncture / Unknown 06/30/2025 4:04 PM CDT 06/30/2025 4:14 PM CDT us Doctor Unknown LABORATORY Final Result [facility] [address] [place] [id number], * SCAN-CARDIAC STRIP (06/30/2025 3:12 PM CDT) us Scanner OTHER Final Result * Lipid Panel AM (06/30/2025 12:24 PM CDT) CHOLESTEROL,TOTAL 190 100 - 199 mg/dL 06/30/2025 4:38 PM CDT [facility] Comment: Cholesterol, Total Reference Ranges Desirable <200 mg/dL Borderline 200-239 mg/dL High >=240 mg/dL TRIGLYCERIDES 78 <150 mg/dL 06/30/2025 4:38 PM CDT [facility] HDL CHOLESTEROL 68 >40 mg/dL 4:38 PM CDT [facility] NON-HDL CHOLESTEROL 122 <145 mg/dl 06/30/2025 4:38 PM CDT [facility] CHOL/HDL RATIO 2.79 <4.50 06/30/2025 4:38 PM CDT [facility] LDL CHOLESTEROL 106 <=130 mg/dL 06/30/2025 4:38 PM CDT [facility] VLDL CHOLESTEROL 16 <=30 mg/dL 06/30/20 4:38 PM CDT [facility] Blood BLOOD SPECIMEN / Unknown Non-Lab Venipuncture / Unknown 06/30/2025 12:24 PM CDT 06/30/2025 12:33 PM CDT Denisse Rodriguez MD CHEMISTRY Final Resu lt [facility] [address] [place] [address], [place] * CT CHEST PE STUDY (06/30/2025 10:41 AM CDT) Anatomical Region Laterality Modality CHEST, THORAX, HEART Computed To mography Kwame Soni MD CT Final R esult * CT HEAD BRAIN WO (06/30/2025 10:38 AM CDT) Anatomical Region Laterality Modality HEAD, BRAIN Computed Tomogra phy Kwame Soni MD CT Final R esult * (ABNORMAL) D-DIMER,QUANTITATIVE (06/30/2025 8:54 AM CDT) D-DIMER,QUANTI TATIVE 1.37 See comment FEU mcg/mL 06/30/2025 9:[address] [facility] D-DIMER INTERP Abnormal(A ) 06/30/2025 9:[address] [facility] Blood BLOOD SPECIMEN / Unknown IV Start / Unknown 06/30/2025 8:54 AM CDT 06/30/2025 8:[address] [facility] - 06/30/2025 9:53 AM CDT The cut off value for exclusion of Deep Vein Thrombosis and / or Pulmonary Embolism is 0.50 FEU mcg/mL For patients greater than 50 years of age the upper limit is age dependent and was calculated with the formula: (PATIENT AGE x 0.01) FEU mcg/mL = Upper limit of normal range us Kwame Soni MD HEMATOLOGY Final R esult [facility] [address] [place] [address] from Last 3 Months Insurance [facility] Advance Directives * Full Code (Latest Code Status on File) Date Activated Date Inactivated Comments 06/30/2025 3:01 PM 07/17/2025 1:39 PM Question Answer Comments Code Status Discussion: Reviewed Preferences * Full Code Date Activated Date Inactivated Comments 02/22/2024 7:21 AM 02/22/2024 4:39 PM Question Answer Comments Code Status Discussion: Not Discussed * Full Code Date Activated Date Inactivated Comments 08/18/2013 6:12 AM 08/18/2013 2:37 PM * Full Code Date Activated Date Inactivated Comments 08/17/2013 10:10 AM 08/17/2013 1:41 PM Care Teams Remote Control Mirror Installer Relationship Specialty Start Date End Date Thony Coyne MD [address] [phone] PCP - General Family Practice 02/21/24
--- OUTSIDE RECORDS SUMMARY | 2025-08-23 00:17 | XMS_ITS | Encounter Summary ---
Author Organization [facility] Address [address] [place] [address] Care Team Providers Care Porter Marina Name Role Phone Thony Coyne M.D. Primary Care Provide r Encounter Details Date Type Department Care Team (Late st Contact Info) Description 06/19/2025 Documentation Division of Gastroenterology in [place], [place] [address] [place] [phone] Anatoly Mccarthy M.D. [address] [place] [address] Social History Tobacco Use Types Packs/Day Years Used Date Smoking Tobacco: Never Passive Smoke Exposure: Past Smokeless Tobacco: Never Alcohol Use Standard Drinks/Week Comments Yes 2 (1 standard drink = 0.6 oz pure alcohol) 5-6 nights a week, has one drink [employer] Utilities Answer Date Recorded In the past 12 months has [facility], oil, or water [employer] threatened to shut off services in your [...] your living situation today? I have a [facility] place to live 12/25/2024 Education Answer Date Recorded What is the highest level of school you have completed or the highest degree you have received? Master's degree (e.g., MA, MS, Guilherme, MEd, [employer]ER, ENDY) 05/04/2019 Sex and Gender Information Value Date Recorded Sex Assigned at Male 12/17/2017 8:02 PM MORTGAGE ORIGINATOR Legal Sex Male 4:29 AM MORTGAGE ORIGINATOR Gender Identity Male 12/17/2017 8:02 PM MORTGAGE ORIGINATOR Sexual Orientation Straight 12/17/2017 8: 02 PM MORTGAGE ORIGINATOR documented as of this encounter Plan of Treatment Not on file documented as of this encounter Visit Diagnoses Not on filedocumented in this encounter Care Teams Porter Marina Relationship Specialty Start Date End Date Thony Coyne M.D. [address] [phone] PCP - General 04/22/17 documented as of this encounter
--- OUTSIDE RECORDS SUMMARY | 2025-08-23 00:17 | XMS_ITS | Encounter Summary ---
Author Organization [facility] Address [address] [place] [address] Care Team Providers Care Solvent Mixer Name Role Phone Thony Coyne M.D. Primary Care Provide r Reason for Visit * Reason Onset Date Comments Post Hospital Follow-up 07/18/2025 Encounter Details Date Type Department Care Team (Latest Contact Info) Description 07/18/2025 Clinical Communication Department of Family Medicine, [facility], in [place], [place] [address] [place] [phone] Priscilla Reddy, Justus [address] [place] [phone] Post Hospital Follow-up Social History Tobacco Use Types Packs/Day Years Used Date Smoking Tobacco: Never Passive Smoke Exposure: Past Smokeless Tobacco: Never Alcohol Use Standard Drinks/Week Comments Yes 2 (1 standard drink = 0.6 oz pure alcohol) 5-6 nights a week, has one drink [employer] Utilities Answer Date Recorded In the past 12 months has [employer], gas, oil, or water [employer] threatened to shut off services in your [...] your living situation today? I have a [facility] place to live 12/25/2024 Education Answer Date Recorded What is the highest level of school you have completed or the highest degree you have received? Master's degree (e.g., MA, MS, Guilherme, MEd, TECHNICAL SME, ENDY) 05/04/2019 Sex and Gender Information Value Date Recorded Sex Assigned at Male 12/17/2017 8:02 PM STARCHER AND TENTER RANGE FEEDER Legal Sex Male 4:29 AM STARCHER AND TENTER RANGE FEEDER Gender Identity Male 12/17/2017 8:02 PM STARCHER AND TENTER RANGE FEEDER Sexual Orientation Straight 12/17/2017 8: 02 PM STARCHER AND TENTER RANGE FEEDER documented as of this encounter Miscellaneous Notes * Telephone Encounter - Priscilla Reddy R.N. - 07/18/2025 8:40 AM CDT SUBJECTIVE REASON FOR CALL Post-Hospital follow-up phone call with patient. Admission Date: 06/30/25 Discharge Date: 07/17/25 Discharge Diagnosis: severe multivessel CAD, NSTEMI, out of hospital cardiac arrest General Health Notes today that he is feeling better since discharged from the hospital. Concerns/questions: Patient has no questions or concerns. Symptom Review Respiratory: nonproductive cough. Patient attributes it to taking Lisinopril. Nurse advised him to send a portal message to his primary care provider regarding these symptoms. Activities of Daily Living Patient is independent with activities of daily living. Has the patient had a fall since discharge: no. Has ambulation changed since hospitalization: no. Difficulty ambulating: no. The patient lives with spouse. Patient identified if needing assistance, he could depend on . Wounds/Incisions/Lines, Drains and Airways Incision: chest/chest tube site/left leg incision sites x2. Signs or symptoms of infection: no. Incision care instructions reviewed: yes per AVS. Medication Status Current medication list was reviewed and updated as needed. Reports medication is self managed. Medications concerns: yes, see above note about lisinopril and cough. Medication compliance for current medications: yes. High Risk Medications Controlled Substances: Name: Oxycodone. Taking as instructed: yes. Experiencing side effects: no. This medication was added during this hospital stay: yes.. Home Services Utilized The patient is not currently receiving home health services. Equipment/Supplies for Home Use None ordered Assessment/Plan Follow-up Appointment PCP Follow-up appointment scheduled: yes; scheduled on 07/24/25. The patient plans to go to the appointment and has no concerns about getting there. Specialty Follow-up Patient will discuss cardiology follow up at his upcoming appointment, no orders entered currently in the [facility] system. Recommendations Referral actions: none needed at this time. Additional recommendations: home care instructions reinforced or provided and appointment ordered/scheduled as per TCM guidelines. Disposition/Recommendation: self-care is appropriate at this time, patient encouraged to call back with questions and recommended continue engagement in self-management activities. Education: patient/caller able to teach back. Caller agreeable to plan of care: yes. documented in this encounter Plan of Treatment Not on file documented as of this encounter Visit Diagnoses Not on filedocumented in this encounter Care Teams Solvent Mixer Relationship Specialty Start Date End Date Thony Coyne M.D. [address] [place] [phone] PCP - General 04/22/17 documented as of this encounter
--- OUTSIDE RECORDS SUMMARY | 2025-08-23 00:17 | XMS_ITS | Encounter Summary ---
Author Organization [facility] Address [address] [place] [address] Care Team Providers Care Contract Negotiation Specialist Name Role Phone Thony Coyne M.D. Primary Care Provide r Reason for Visit * Reason Onset Date Comments Cough 07/18/2025 Encounter Details Date Type Department Care Team (Late st Contact Info) Description 07/18/2025 Nurse Triage Department of Family Medicine, [facility], in [place], [place] [address] [place] [phone] Sweetie Orourke, RShellieNShellie Cough Social History Tobacco Use Types Packs/Day Years Used Date Smoking Tobacco: Never Passive Smoke Exposure: Past Smokeless Tobacco: Never Alcohol Use Standard Drinks/Week Comments Yes 2 (1 standard drink = 0.6 oz pure alcohol) 5-6 nights a week, has one drink [facility] Utilities Answer Date Recorded In the past 12 months has [employer] gas, oil, or water [employer] threatened to shut off services in your [...] your living situation today? I have a [facility] place to live 12/25/2024 Education Answer Date Recorded What is the highest level of school you have completed or the highest degree you have received? Master's degree (e.g., MA, MS, Guilherme, MEd, SENIOR SOUS CHEF, ENDY) 05/04/2019 Sex and Gender Information Value Date Recorded Sex Assigned at Male 12/17/2017 8:02 PM DIRECTOR OF APPLICATION DEVELOPMENT Legal Sex Male 4:29 AM DIRECTOR OF APPLICATION DEVELOPMENT Gender Identity Male 12/17/2017 8:02 PM DIRECTOR OF APPLICATION DEVELOPMENT Sexual Orientation Straight 12/17/2017 8: 02 PM DIRECTOR OF APPLICATION DEVELOPMENT documented as of this encounter Miscellaneous Notes * Telephone Encounter - Haylie Garcia, L.P.N. - 07/23/2025 4:19 PM CDT Information Discussed Please contact the patient via phone and let him know to stop lisinopril and switch to losartan 50 mg once daily. Keep appointment with Avis Dyson for July 24 for hospital follow-up. They will need to recheck electrolytes in a few weeks for monitoring of these med changes. PLAN Disposition/Recommendation: self-care is appropriate at this time, patient encouraged to call back with questions Information/Education: patient/caller able to teach back Caller agreeable to plan of care: yes The following references were used: nursing clinical judgement * Addendum Note - Gabrielle Calzada M.D. - 07/22/2025 3:26 PM CDTAddended by: GABRIELLE CALZADA on: 07/22/2025 03:26 PM Modules accepted: Orders * Telephone Encounter - Haylie Garcia L.P.N. - 07/18/2025 3:20 PM CDT Being addressed in another encounter * Telephone Encounter - Sweetie Orourke R.N. - 07/18/2025 9:36 AM CDT Chief Complaint / Reason for Call Patient is a 64 y.o. male calling regarding Cough. Assessment Concern: His is calling about starting lisinopril and his new cough. She states his last bloodpressure was 120/76 mmHg yesterday. Present for: 6 days Home cares tried: monitoring Calling to request: Change Lisinopril to another medication The recommended disposition is See a health care provider within 3 days. She is requesting a note be sent to PCP, declines appointment at this time. Caller declines transfer to scheduling after triage. Encouraged to call back if they decide to be scheduled for an appointment. Reason for Disposition Taking an EDA Inhibitor medicine (e.g., benazepril / LOTENSIN, captopril / CAPOTEN, enalapril / VASOTEC, lisinopril / ZESTRIL) Protocols used: Cough - Acute Sot-Eonbjfujav-Edbqb-AH Care Advice Patient/Caregiver understands and will follow care advice?: Yes, able to teach back Cough - Acute Ggg-Otmikrxlhv-Dyqbf-AH Nurse Sweetie Otto Jul 18, 2025 09:41 AM Care Advice SEE PCP WITHIN 3 DAYS: * You need to be seen within 2 or 3 days. * PCP VISIT: Call your doctor (or DIAMOND WHEEL MOLDER/PA) during regular office hours and make an appointment. A clinic or urgent care center are good places to go for care if your doctor's office is closed or you can't get an appointment. NOTE: If office will be open tomorrow, tell caller to call then, not in 3 days. * IF PATIENT HAS NO PCP: A clinic or urgent care center are good places to go for care if you do not have a primary care provider. NOTE: Try to help caller find a PCP for future care (e.g., use a physician referral line). Having a PCP or 'medical home' means better long-term care. CALL BACK IF: * Difficulty breathing occurs * You become worse documented in this encounter Plan of Treatment Not on file documented as of this encounter Visit Diagnoses Not on filedocumented in this encounter Care Teams Contract Negotiation Specialist Relationship Specialty Start Date End Date Thony Coyne M.D. [address] [phone] PCP - General 04/22/17 documented as of this encounter
--- OUTSIDE RECORDS SUMMARY | 2025-08-23 00:17 | XMS_ITS | Encounter Summary ---
Author Organization [facility] Address [address] [place] [address] Care Team Providers Care Annealing Furnace Operator Name Role Phone Thony Coyne M.D. Primary Care Provide r Encounter Details Date Type Department Care Team (Latest Contact Info) Description 06/19/2025 Results Follow-Up Division of Gastroenterology in [place], [place] [address] [place] [phone] Anatoly Mccarthy M.D. [address] [place] [phone] tTG (Tissue Transglutaminase), Antibody, IgA Social History Tobacco Use Types Packs/Day Years Used Date Smoking Tobacco: Never Passive Smoke Exposure: Past Smokeless Tobacco: Never Alcohol Use Standard Drinks/Week Comments Yes 2 (1 standard drink = 0.6 oz pure alcohol) 5-6 nights a week, has one drink [employer] Utilities Answer Date Recorded In the past 12 months has [employer], [employer], or water [employer] threatened to shut off services in your [...] your living situation today? I have a [facility] place to live 12/25/2024 Education Answer Date Recorded What is the highest level of school you have completed or the highest degree you have received? Master's degree (e.g., MA, MS, Guilherme, MEd, FIRER TUNNEL KILN, ENDY) 05/04/2019 Sex and Gender Information Value Date Recorded Sex Assigned at Male 12/17/2017 8:02 PM SCREEN PRINTING LOADER UNLOADER Legal Sex Male 4:29 AM SCREEN PRINTING LOADER UNLOADER Gender Identity Male 12/17/2017 8:02 PM SCREEN PRINTING LOADER UNLOADER Sexual Orientation Straight 12/17/2017 8: 02 PM SCREEN PRINTING LOADER UNLOADER documented as of this encounter Plan of Treatment Not on file documented as of this encounter Visit Diagnoses Not on filedocumented in this encounter Care Teams Annealing Furnace Operator Relationship Specialty Start Date End Date Thony Coyne M.D. [address] [place] [phone] PCP - General 04/22/17 documented as of this encounter
--- OUTSIDE RECORDS SUMMARY | 2025-08-23 00:20 | XMS_ITS | Clinical Summary ---
Author Organization [facility] Address [address] [place] [id number] Phone [email or web address] Care Team Providers Care Auto Electrician Name Role Phone Unavailable Primary Care Provider Unavailabl e Social History Tobacco Use Types Packs/Day Years Used Date Smoking Tobacco: Never Assessed Intimate Partner Violence Answer Date R ecorded Insults You Not on file 02/20/2021 Threatens You Not on file 02/20/2021 Screams at You Not on file 02/20/2021 Physically Hurt Not on file 02/20/2021 Intimate Partner Violence Score Not on file 02/20/2021 Stress Answer Date Recorded Stress in your Life 0 12/15/2020 Dealing with Stress Not on file 12/15/2020 Sex and Gender Information Value Date Recorded Sex Assigned at Not on file 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 Gender Identity Not on file Sexual Orientation Not on file Plan of Treatment Health Maintenance Due Date Last Done Comments CT Colonography 1962 Colonoscopy 1962 Colorectal Cancer Screening Combo 1962 DNA Cologuard 1962 Dental Cleaning/Exam 1962 FIT or FOBT Test 1962 Sigmoidoscopy 1962 Pneumococcal: 50+ Years (1 o f 1 - PCV) 2012 Zoster Immunization (1 of 2) 2012 Tetanus Diphtheria and Pertussis Immunization (2 - Td or Tdap) 07/10/2021 07/10/2011 Covid-19 Immunization (1 - season) 2025 Influenza Immunization (#1) 2025 10/0 11/2012, 11/19/2009, 11/19/2009 HIB Immunization Aged Out No longer e ligible based on patient's age to complete this topic HPV Immunization Aged Out No longer e ligible based on patient's age to complete this topic Hepatitis A Immunization Aged Out No longer eligible based on patient's age to complete this topic Hepatitis B Immunization Aged Out No longer eligible based on patient's age to complete this topic Polio Immunization Aged Out No longer eligible based on patient's age to complete this topic Insurance NO COPAY NB
== END 2025-08-22 09:40 | disposition home or self-care (01) ==
LOC: RAD 09:39
PROVIDERS: PCP Chiropractor; Visit Provider Chiropractor
DX: I25.10 Atherosclerotic heart disease of native coronary artery without angina pectoris (principal); I35.1 Nonrheumatic aortic (valve) insufficiency; I34.0 Nonrheumatic mitral (valve) insufficiency; I07.1 Rheumatic tricuspid insufficiency
CPT/HCPCS: 93308; 93321; 93325